=== PATIENT | male | born 1945 | race Caucasian/White ===

== ENCOUNTER → 2020-02-19 13:27 | Outpatient (BNVA) | payer MEDICARE, MEDICAID, SELFPAY | PROVIDERS: Family Provider Nurse Practitioner; PCP Nurse Practitioner; Visit Provider Internal Medicine Cardiovascular Disease | DX: E78.5 Hyperlipidemia, unspecified (principal); D69.6 Thrombocytopenia, unspecified; I10 Essential (primary) hypertension; I25.10 Atherosclerotic heart disease of native coronary artery without angina pectoris | CPT/HCPCS: 80053; 80061; 84443; 85025 ==

== ENCOUNTER 2021-05-09 20:14 | Emergency (ER) | payer MEDICARE, MEDICAID, SELFPAY ==
--- NOTE | 2021-05-09 20:15 | ED_ITS ---
Documented by User: Jovanny Dunn MD 05/11/21 14:19 HPI - Syncope General: Chief Complaint: Nausea/Vomiting/Diarrhea Stated Complaint: near syncope/ n/v Time Seen by Provider: 05/09/21 20:15 History of Present Illness: HPI narrative: Mr. Bingham is a 75-year-old gentleman with significant past medical history of CAD status post stenting, CKD, hypertension, hyperlipidemia who presents emergency department due to generalized unwell symptoms. He reports being at his baseline health and was spending a lot of time going outside today. Sometime after dinner he had subacute onset of lightheadedness and dizziness as well as diaphoresis. This was not associated with position change. He had associated nausea and vomiting. No chest pain associated with it. He had multiple episodes of nonbilious and nonbloody emesis. He thought sitting down would help however symptoms persisted. The intensity is moderate. He denies anyone else around him being sick. No other new specific exacerbating or alleviating factors that he can i dentify. Review of Systems General: Reports: 10 or more systems reviewed and unremarkable except in HPI and below Narrative: CONSTITUTIONAL: see hpi EYES - denies pain, denies loss of vision EARS - denies ear issues. NOSE - denies congestion or rhinorrhea. THROAT - denies sore throat or difficulty swallowing. CARDIOVASCULAR - see hpi RESPIRATORY - denies shortness of breath and cough GASTROINTESTINAL - see hpi GENITOURINARY - denies dysuria or urinary frequency MUSCULOSKELETAL- denies deformity or pain SKIN - denies rashes or new changed skin lesions NEUROLOGIC - see hpi HEMATOLOGIC/LYMPHATIC - denies easy bruising or lymphadenopathy. [facility] ED PFSH: Medical History CKD (chronic kidney disease) Coronary artery disease Hyperlipidemia Hypertension Thrombocytopenia Surgical History History of bilateral knee arthroplasty S/P coronary artery stent placement Family History Other Hyperlipidemia Hypertension Social History Smoking and tobacco status: former smoker Alcohol intake: current Alcohol intake frequency: other Physical Exam Narrative: EXAM NARRATIVE: GENERAL/CONSTITUTIONAL - mildly ill-appearing. No acute distress. Eyes - PERRL, no conjunctival injection ENMT - Atraumatic external nose and ears. Moist mucous membranes NECK - supple. trachea midline CARDIOVASCULAR - regular rate and rhythm. Peripheral pulses 2+ and equal RESPIRATORY -clear to auscultation bilaterally. No retractions or accessory muscle use. ABDOMEN/GI - Nontender/Nondistended. No tenderness to percussion or evidence of peritonitis MSK - Extremities without obvious deformity or tenderness to palpation SKIN - Warm, Dry NEURO - alert and appropriately oriented. strength and sensation intact. Moves all extremities equally. PSYCH - Appropriate mood and affect Course ED course: - Monitor, IV access, and vital signs obtained. - The patient was seen and evaluated by me at bedside - Initial evaluation was notable for no acute distress, non toxic appearance. No focal neuro changes - IV fluids, symptom treatment ordered - Labs notable for no acute abnormality to explain symptoms, mildly elevated creatinine, IV fluids given. - Imaging notable for no acute abnormality to explain symptoms. - Patient care handed off to overnight physician pending 6 hr troponin. - I discussed possible etiologies with the patient. These symptoms are not similar to prior [place] however atypical chest pain cannot be excluded from differential. I offered admission and explained HEART score risk stratification. The patient elected for outpatient followup. Vital Signs: Vital signs: Vital Signs Temperature 98.1 F 05/09/21 20:19 Pulse Rate 67 05/10/21 03:47 Respiratory Rate 18 05/10/21 03:47 Blood Pressure 152/80 05/10/21 03:47 Pulse Oximetry 96 05/10/21 03:47 MDM - Syncope Medical Records: Attestation: I reviewed the patient's medical records. Lab Data: Attestation: I reviewed the patient's lab results. Labs: Lab Results 05/09/21 05/09/21 05/09/21 Range/Units 20:30 20:30 20:30 WBC 6.3 (4.0-10.0) 10^3/ uL RBC 3.95 L (4.1-5.3) 10^6/u L Hgb 12.3 (11.7-16.6) g/dL Hct 38.2 L (42.0-52.0) % MCV 96.7 H (80-94) fl MCH 31.1 (28.0-34.0) pg MCHC 32.2 (30.0-36.0) g/dL RDW 11.8 L (12.1-15.1) % Plt Count 111 L (130-400) 10^3/c mm MPV 12.5 H (7.4-10.4) fL Neut % (Auto) 65.8 % Lymph % (Auto) 22.5 % [place] % (Auto) 9.8 % Eos % (Auto) 1.4 % Baso % (Auto) 0.3 % Neut # (Auto) 4.14 (1.8-7.7) 10^3/u L Lymph # (Auto) 1.4 (0.8-4.8) 10^3/u L [place] # (Auto) 0.6 (0.2-0.9) 10^3/u L Eos # (Auto) 0.1 (0.0-0.8) 10^3/u L Baso # (Auto) 0.0 (0.0-0.1) 10^3/u L Nucleated RBC % (a uto) 0 % Nucleated RBCs # 0.0 /100WBC Sodium 136 (136-145) mmol/L Potassium 4.8 (3.5-5.1) mmol/L Chloride 101 (98-107) mmol/L Carbon Dioxide 26 (22-29) mmol/L Anion Gap 13.8 (5-19) BUN 17 (8-23) mg/dL Creatinine 1.4 H (0.7-1.2) mg/dL GFR Calculation Not Reportable Glucose 122 H (65-115) mg/dL POC Glucose (70-110) mg/dL Calculated Osmolal ity 285 (285-295) mOsm/k g Calcium 9.3 (8.5-10.5) mg/dL Magnesium 2.0 (1.7-2.3) mg/dL Total Bilirubin 0.2 (0.15-1.2) mg/dL AST 15 (0-40) U/L ALT 13 (0-41) U/L Alkaline Phosphata se 53 (40-130) IU/L Troponin T Baselin e 24 H (0-15) ng/L Troponin T 120 Min redding (0-15) ng/L Delta Troponin T (0-10) ABS# Troponin T Hi Sens 6Hr (0-15) ng/L Troponin T Hi Sens 6Hr Delta (0-12) ng/L NT-Pro-B Natriuret Pep 114 (0-450) pg/mL Total Protein 6.7 (6.6-8.7) g/dL Albumin 4.0 (3.5-5.2) g/dL Globulin 2.7 (1.3-4.6) g/dL TSH 1.99 (0.27-4.20) uIU/ mL Urine Color (Yellow) Urine Appearance (CLEAR) Urine pH (5-7) Ur Specific Gravit y (1.005-1.030) Urine Protein (Negative) Urine Glucose (UA) (Normal) Urine Ketones (Negative) Urine Blood (Negative) Urine Nitrate (Negative) Urine Bilirubin (Negative) Urine Urobilinogen (Negative) mg/dL Ur Leukocyte Saira ase (Negative) Urine RBC (0-2) /hpf Urine WBC (0-5) /hpf Ur Squamous Epith Cells (0-5) /hpf Amorphous Sediment Urine Bacteria (NONE) /hpf Hyaline Casts /lpf SARS-CoV-2 Ag (Rap id) (Negative) 05/09/21 05/09/21 05/09/21 Range/Units 20:42 21:20 21:20 WBC (4.0-10.0) 10^3/ uL RBC (4.1-5.3) 10^6/u L Hgb (11.7-16.6) g/dL Hct (42.0-52.0) % MCV (80-94) fl MCH (28.0-34.0) pg MCHC (30.0-36.0) g/dL RDW (12.1-15.1) % Plt Count (130-400) 10^3/c mm MPV (7.4-10.4) fL Neut % (Auto) % Lymph % (Auto) % [place] % (Auto) % Eos % (Auto) % Baso % (Auto) % Neut # (Auto) (1.8-7.7) 10^3/u L Lymph # (Auto) (0.8-4.8) 10^3/u L [place] # (Auto) (0.2-0.9) 10^3/u L Eos # (Auto) (0.0-0.8) 10^3/u L Baso # (Auto) (0.0-0.1) 10^3/u L Nucleated RBC % (a uto) % Nucleated RBCs # /100WBC Sodium (136-145) mmol/L Potassium (3.5-5.1) mmol/L Chloride (98-107) mmol/L Carbon Dioxide (22-29) mmol/L Anion Gap (5-19) BUN (8-23) mg/dL Creatinine (0.7-1.2) mg/dL GFR Calculation Glucose (65-115) mg/dL POC Glucose 131 H (70-110) mg/dL Calculated Osmolal ity (285-295) mOsm/k g Calcium (8.5-10.5) mg/dL Magnesium (1.7-2.3) mg/dL Total Bilirubin (0.15-1.2) mg/dL AST (0-40) U/L ALT (0-41) U/L Alkaline Phosphata se (40-130) IU/L Troponin T Baselin e (0-15) ng/L Troponin T 120 Min redding (0-15) ng/L Delta Troponin T (0-10) ABS# Troponin T Hi Sens 6Hr (0-15) ng/L Troponin T Hi Sens 6Hr Delta (0-12) ng/L NT-Pro-B Natriuret Pep (0-450) pg/mL Total Protein (6.6-8.7) g/dL Albumin (3.5-5.2) g/dL Globulin (1.3-4.6) g/dL TSH (0.27-4.20) uIU/ mL Urine Color Yellow (Yellow) Urine Appearance Sl hazy (CLEAR) Urine pH 7 (5-7) Ur Specific Gravit y 1.010 (1.005-1.030) Urine Protein Neg (Negative) Urine Glucose (UA) Norm (Normal) Urine Ketones Negative (Negative) Urine Blood Neg (Negative) Urine Nitrate Negative (Negative) Urine Bilirubin Neg (Negative) Urine Urobilinogen Norm (Negative) mg/dL Ur Leukocyte Saira ase 1+ H (Negative) Urine RBC 0-4 H (0-2) /hpf Urine WBC 0-4 H (0-5) /hpf Ur Squamous Epith Cells 0-4 H (0-5) /hpf Amorphous Sediment Not Reportable Urine Bacteria Trace (NONE) /hpf Hyaline Casts 0-4 H /lpf SARS-CoV-2 Ag (Rap id) Negative (Negative) 05/09/21 05/10/21 Range/Units 23:08 02:23 WBC (4.0-10.0) 10^3/ uL RBC (4.1-5.3) 10^6/u L Hgb (11.7-16.6) g/dL Hct (42.0-52.0) % MCV (80-94) fl MCH (28.0-34.0) pg MCHC (30.0-36.0) g/dL RDW (12.1-15.1) % Plt Count (130-400) 10^3/c mm MPV (7.4-10.4) fL Neut % (Auto) % Lymph % (Auto) % [place] % (Auto) % Eos % (Auto) % Baso % (Auto) % Neut # (Auto) (1.8-7.7) 10^3/u L Lymph # (Auto) (0.8-4.8) 10^3/u L [place] # (Auto) (0.2-0.9) 10^3/u L Eos # (Auto) (0.0-0.8) 10^3/u L Baso # (Auto) (0.0-0.1) 10^3/u L Nucleated RBC % (a uto) % Nucleated RBCs # /100WBC Sodium (136-145) mmol/L Potassium (3.5-5.1) mmol/L Chloride (98-107) mmol/L Carbon Dioxide (22-29) mmol/L Anion Gap (5-19) BUN (8-23) mg/dL Creatinine (0.7-1.2) mg/dL GFR Calculation Glucose (65-115) mg/dL POC Glucose (70-110) mg/dL Calculated Osmolal ity (285-295) mOsm/k g Calcium (8.5-10.5) mg/dL Magnesium (1.7-2.3) mg/dL Total Bilirubin (0.15-1.2) mg/dL AST (0-40) U/L ALT (0-41) U/L Alkaline Phosphata se (40-130) IU/L Troponin T Baselin e (0-15) ng/L Troponin T 120 Min redding 24.31 H (0-15) ng/L Delta Troponin T 0.31 (0-10) ABS# Troponin T Hi Sens 6Hr 23.98 H (0-15) ng/L Troponin T Hi Sens 6Hr Delta -0.02 L (0-12) ng/L NT-Pro-B Natriuret Pep (0-450) pg/mL Total Protein (6.6-8.7) g/dL Albumin (3.5-5.2) g/dL Globulin (1.3-4.6) g/dL TSH (0.27-4.20) uIU/ mL Urine Color (Yellow) Urine Appearance (CLEAR) Urine pH (5-7) Ur Specific Gravit y (1.005-1.030) Urine Protein (Negative) Urine Glucose (UA) (Normal) Urine Ketones (Negative) Urine Blood (Negative) Urine Nitrate (Negative) Urine Bilirubin (Negative) Urine Urobilinogen (Negative) mg/dL Ur Leukocyte Saira ase (Negative) Urine RBC (0-2) /hpf Urine WBC (0-5) /hpf Ur Squamous Epith Cells (0-5) /hpf Amorphous Sediment Urine Bacteria (NONE) /hpf Hyaline Casts /lpf SARS-CoV-2 Ag (Rap id) (Negative) EKG Data^: EKG 1: Attestation: I personally reviewed and interpreted this EKG as follows: EKG interpretation date: 05/09/21 EKG interpretation time: 20:30 Interpretation: 12 lead shows regular sinus rhythm at rate of 72 NC 220, QRS 102, QTc 434 normal axis Interp: sinus rhythm. prolonged NC Discharge Plan Discharge Patient Disposition: Home Clinical Impression: Nausea and vomiting, Dizziness, Malaise Condition: Stable Prescriptions: No Action aspirin 81 mg tablet,delayed release (DR/EC) 81 mg PO DAILY RF: 0 furosemide 40 mg tablet 40 mg PO DAILY RF: 0 lisinopril 20 mg tablet 20 mg PO DAILY RF: 0 isosorbide mononitrate 30 mg tablet extended release 24 hr 30 mg PO DAILY RF: 0 potassium chloride 10 mEq tablet extended release 10 meq PO DAILY RF: 0 clopidogrel 75 mg tablet 75 mg PO DAILY RF: 0 rosuvastatin 20 mg tablet 20 mg PO DAILY RF: 0 Discharge Orders: Discharge ED (Routine); Ordered 05/10/21 Ordered By: Jesus Alberto Carrera Referrals: Luis Angel Henderson, [employer] [Primary Care Provider] - Discharge Diet: Advance as tolerated and Clear Liquid Discharge Activity: Resume usual activity Patient Instructions: Chest Pain (ED), Acute Nausea and Vomiting (ED), Abdominal Pain (ED), Dizziness (ED), Opioid Safety Activity Restrictions/Additional Instructions: Thank you for visiting the emergency department. You were seen and evaluated for dizziness and nausea and vomiting. The exact cause of your symptoms is unclear. As discussed we recommend further outpatient testing. Additionally, as an incidental finding you were noted to have Enlarged prostate greater than or equal to 5.0 cm. The radiologist recommended PSA correlation however this is not something typically done in the emergency department and this should be discussed with your primary care provider. Please return to the emergency department for worsening of your symptoms or anything else that you are concerned about and feel needs emergency department evaluation. Coding Level of Care Code ED Mechanical Design Engineer for [facility] Documented by User: Jesus Alberto Carrera DO 05/10/21 05:06 HPI - Syncope General: Chief Complaint: Nausea/Vomiting/Diarrhea Stated Complaint: near syncope/ n/v Time Seen by Provider: 05/09/21 20:15 [facility] ED PFSH: Medical History CKD (chronic kidney disease) Coronary artery disease Hyperlipidemia Hypertension Thrombocytopenia Surgical History History of bilateral knee arthroplasty S/P coronary artery stent placement Family History Other Hyperlipidemia Hypertension Social History Smoking and tobacco status: former smoker Alcohol intake: current Alcohol intake frequency: other Course 2 Vital Signs: Vital signs: Vital Signs Temperature 98.1 F 05/09/21 20:19 Pulse Rate 67 05/10/21 03:47 Respiratory Rate 18 05/10/21 03:47 Blood Pressure 152/80 05/10/21 03:47 Pulse Oximetry 96 05/10/21 03:47 MDM - Syncope MDM Narrative: Medical decision making narrative: 75-year-old male checked out to me by Dr. Dean at shift change. This man has a history of coronary disea se. He experienced a near syncopal episode at home. He has been fine on the monitor here. 2-hour troponin did not change significantly. 6-hour troponin did not change significantly either. EKG showed a sinus rhythm with first- degree AV block and rate of 75. There is no ST elevation or depression. [place] is normal. The patient is feeling much better auditory interview. He will be allowed home to follow-up as an outpatient. Lab Data: Labs: Lab Results 05/09/21 05/09/21 05/09/21 Range/Units 20:30 20:30 20:30 WBC 6.3 (4.0-10.0) 10^3/ uL RBC 3.95 L (4.1-5.3) 10^6/u L Hgb 12.3 (11.7-16.6) g/dL Hct 38.2 L (42.0-52.0) % MCV 96.7 H (80-94) fl MCH 31.1 (28.0-34.0) pg MCHC 32.2 (30.0-36.0) g/dL RDW 11.8 L (12.1-15.1) % Plt Count 111 L (130-400) 10^3/c mm MPV 12.5 H (7.4-10.4) fL Neut % (Auto) 65.8 % Lymph % (Auto) 22.5 % [place] % (Auto) 9.8 % Eos % (Auto) 1.4 % Baso % (Auto) 0.3 % Neut # (Auto) 4.14 (1.8-7.7) 10^3/u L Lymph # (Auto) 1.4 (0.8-4.8) 10^3/u L [place] # (Auto) 0.6 (0.2-0.9) 10^3/u L Eos # (Auto) 0.1 (0.0-0.8) 10^3/u L Baso # (Auto) 0.0 (0.0-0.1) 10^3/u L Nucleated RBC % (a uto) 0 % Nucleated RBCs # 0.0 /100WBC Sodium 136 (136-145) mmol/L Potassium 4.8 (3.5-5.1) mmol/L Chloride 101 (98-107) mmol/L Carbon Dioxide 26 (22-29) mmol/L Anion Gap 13.8 (5-19) BUN 17 (8-23) mg/dL Creatinine 1.4 H (0.7-1.2) mg/dL GFR Calculation Not Reportable Glucose 122 H (65-115) mg/dL POC Glucose (70-110) mg/dL Calculated Osmolal ity 285 (285-295) mOsm/k g Calcium 9.3 (8.5-10.5) mg/dL Magnesium 2.0 (1.7-2.3) mg/dL Total Bilirubin 0.2 (0.15-1.2) mg/dL AST 15 (0-40) U/L ALT 13 (0-41) U/L Alkaline Phosphata se 53 (40-130) IU/L Troponin T Baselin e 24 H (0-15) ng/L Troponin T 120 Min redding (0-15) ng/L Delta Troponin T (0-10) ABS# Troponin T Hi Sens 6Hr (0-15) ng/L Troponin T Hi Sens 6Hr Delta (0-12) ng/L NT-Pro-B Natriuret Pep 114 (0-450) pg/mL Total Protein 6.7 (6.6-8.7) g/dL Albumin 4.0 (3.5-5.2) g/dL Globulin 2.7 (1.3-4.6) g/dL TSH 1.99 (0.27-4.20) uIU/ mL Urine Color (Yellow) Urine Appearance (CLEAR) Urine pH (5-7) Ur Specific Gravit y (1.005-1.030) Urine Protein (Negative) Urine Glucose (UA) (Normal) Urine Ketones (Negative) Urine Blood (Negative) Urine Nitrate (Negative) Urine Bilirubin (Negative) Urine Urobilinogen (Negative) mg/dL Ur Leukocyte Saira ase (Negative) Urine RBC (0-2) /hpf Urine WBC (0-5) /hpf Ur Squamous Epith Cells (0-5) /hpf Amorphous Sediment Urine Bacteria (NONE) /hpf Hyaline Casts /lpf SARS-CoV-2 Ag (Rap id) (Negative) 05/09/21 05/09/21 05/09/21 Range/Units 20:42 21:20 21:20 WBC (4.0-10.0) 10^3/ uL RBC (4.1-5.3) 10^6/u L Hgb (11.7-16.6) g/dL Hct (42.0-52.0) % MCV (80-94) fl MCH (28.0-34.0) pg MCHC (30.0-36.0) g/dL RDW (12.1-15.1) % Plt Count (130-400) 10^3/c mm MPV (7.4-10.4) fL Neut % (Auto) % Lymph % (Auto) % [place] % (Auto) % Eos % (Auto) % Baso % (Auto) % Neut # (Auto) (1.8-7.7) 10^3/u L Lymph # (Auto) (0.8-4.8) 10^3/u L [place] # (Auto) (0.2-0.9) 10^3/u L Eos # (Auto) (0.0-0.8) 10^3/u L Baso # (Auto) (0.0-0.1) 10^3/u L Nucleated RBC % (a uto) % Nucleated RBCs # /100WBC Sodium (136-145) mmol/L Potassium (3.5-5.1) mmol/L Chloride (98-107) mmol/L Carbon Dioxide (22-29) mmol/L Anion Gap (5-19) BUN (8-23) mg/dL Creatinine (0.7-1.2) mg/dL GFR Calculation Glucose (65-115) mg/dL POC Glucose 131 H (70-110) mg/dL Calculated Osmolal ity (285-295) mOsm/k g Calcium (8.5-10.5) mg/dL Magnesium (1.7-2.3) mg/dL Total Bilirubin (0.15-1.2) mg/dL AST (0-40) U/L ALT (0-41) U/L Alkaline Phosphata se (40-130) IU/L Troponin T Baselin e (0-15) ng/L Troponin T 120 Min redding (0-15) ng/L Delta Troponin T (0-10) ABS# Troponin T Hi Sens 6Hr (0-15) ng/L Troponin T Hi Sens 6Hr Delta (0-12) ng/L NT-Pro-B Natriuret Pep (0-450) pg/mL Total Protein (6.6-8.7) g/dL Albumin (3.5-5.2) g/dL Globulin (1.3-4.6) g/dL TSH (0.27-4.20) uIU/ mL Urine Color Yellow (Yellow) Urine Appearance Sl hazy (CLEAR) Urine pH 7 (5-7) Ur Specific Gravit y 1.010 (1.005-1.030) Urine Protein Neg (Negative) Urine Glucose (UA) Norm (Normal) Urine Ketones Negative (Negative) Urine Blood Neg (Negative) Urine Nitrate Negative (Negative) Urine Bilirubin Neg (Negative) Urine Urobilinogen Norm (Negative) mg/dL Ur Leukocyte Saira ase 1+ H (Negative) Urine RBC 0-4 H (0-2) /hpf Urine WBC 0-4 H (0-5) /hpf Ur Squamous Epith Cells 0-4 H (0-5) /hpf Amorphous Sediment Not Reportable Urine Bacteria Trace (NONE) /hpf Hyaline Casts 0-4 H /lpf SARS-CoV-2 Ag (Rap id) Negative (Negative) 05/09/21 05/10/21 Range/Units 23:08 02:23 WBC (4.0-10.0) 10^3/ uL RBC (4.1-5.3) 10^6/u L Hgb (11.7-16.6) g/dL Hct (42.0-52.0) % MCV (80-94) fl MCH (28.0-34.0) pg MCHC (30.0-36.0) g/dL RDW (12.1-15.1) % Plt Count (130-400) 10^3/c mm MPV (7.4-10.4) fL Neut % (Auto) % Lymph % (Auto) % [place] % (Auto) % Eos % (Auto) % Baso % (Auto) % Neut # (Auto) (1.8-7.7) 10^3/u L Lymph # (Auto) (0.8-4.8) 10^3/u L [place] # (Auto) (0.2-0.9) 10^3/u L Eos # (Auto) (0.0-0.8) 10^3/u L Baso # (Auto) (0.0-0.1) 10^3/u L Nucleated RBC % (a uto) % Nucleated RBCs # /100WBC Sodium (136-145) mmol/L Potassium (3.5-5.1) mmol/L Chloride (98-107) mmol/L Carbon Dioxide (22-29) mmol/L Anion Gap (5-19) BUN (8-23) mg/dL Creatinine (0.7-1.2) mg/dL GFR Calculation Glucose (65-115) mg/dL POC Glucose (70-110) mg/dL Calculated Osmolal ity (285-295) mOsm/k g Calcium (8.5-10.5) mg/dL Magnesium (1.7-2.3) mg/dL Total Bilirubin (0.15-1.2) mg/dL AST (0-40) U/L ALT (0-41) U/L Alkaline Phosphata se (40-130) IU/L Troponin T Baselin e (0-15) ng/L Troponin T 120 Min redding 24.31 H (0-15) ng/L Delta Troponin T 0.31 (0-10) ABS# Troponin T Hi Sens 6Hr 23.98 H (0-15) ng/L Troponin T Hi Sens 6Hr Delta -0.02 L (0-12) ng/L NT-Pro-B Natriuret Pep (0-450) pg/mL Total Protein (6.6-8.7) g/dL Albumin (3.5-5.2) g/dL Globulin (1.3-4.6) g/dL TSH (0.27-4.20) uIU/ mL Urine Color (Yellow) Urine Appearance (CLEAR) Urine pH (5-7) Ur Specific Gravit y (1.005-1.030) Urine Protein (Negative) Urine Glucose (UA) (Normal) Urine Ketones (Negative) Urine Blood (Negative) Urine Nitrate (Negative) Urine Bilirubin (Negative) Urine Urobilinogen (Negative) mg/dL Ur Leukocyte Saira ase (Negative) Urine RBC (0-2) /hpf Urine WBC (0-5) /hpf Ur Squamous Epith Cells (0-5) /hpf Amorphous Sediment Urine Bacteria (NONE) /hpf Hyaline Casts /lpf SARS-CoV-2 Ag (Rap id) (Negative) Discharge Plan Discharge Patient Disposition: Home Clinical Impression: Nausea and vomiting, Dizziness, Malaise Condition: Stable Prescriptions: No Action aspirin 81 mg tablet,delayed release (DR/EC) 81 mg PO DAILY RF: 0 furosemide 40 mg tablet 40 mg PO DAILY RF: 0 lisinopril 20 mg tablet 20 mg PO DAILY RF: 0 isosorbide mononitrate 30 mg tablet extended release 24 hr 30 mg PO DAILY RF: 0 potassium chloride 10 mEq tablet extended release 10 meq PO DAILY RF: 0 clopidogrel 75 mg tablet 75 mg PO DAILY RF: 0 rosuvastatin 20 mg tablet 20 mg PO DAILY RF: 0 Discharge Orders: Discharge ED (Routine); Ordered 05/10/21 Ordered By: Jesus Alberto Carrera Referrals: Luis Angel Henderson, MONICA [Primary Care Provider] - Discharge Diet: Advance as tolerated and Clear Liquid Discharge Activity: Resume usual activity Patient Instructions: Chest Pain (ED), Acute Nausea and Vomiting (ED), Abdominal Pain (ED), Dizziness (ED), Opioid Safety Activity Restrictions/Additional Instructions: Thank you for visiting the emergency department. You were seen and evaluated for dizziness and nausea and vomiting. The exact cause of your symptoms is unclear. As discussed we recommend further outpatient testing. Additionally, as an incidental finding you were noted to have Enlarged prostate greater than or equal to 5.0 cm. The radiologist recommended PSA correlation however this is not something typically done in the emergency department and this should be discussed with your primary care provider. Please return to the emergency department for worsening of your symptoms or anything else that you are concerned about and feel needs emergency department evaluation. Coding Level of Care Code ED Mechanical Design Engineer for Caleb Myles
[2021-05-09 20:19] VITALS: BP 184/101; PULSE 73; RESP 16; TEMP 36.7; O2SAT 100; BMI 34.4
[2021-05-09 20:24] VITALS: BP 181/107; PULSE 74; RESP 27; O2SAT 97
--- NOTE | 2021-05-09 20:35 | XRR_ITS ---
PROCEDURE INFORMATION: Exam: XR Chest Exam date and time: 05/09/2021 8:35 PM Age: 75 years old Clinical indication: Pain; Left-sided; Additional info: Chest pain TECHNIQUE: Imaging protocol: XR of the chest. Views: 1 view. COMPARISON: CR Chest 1 [place] [id number] 11/17/2018 12:38 PM FINDINGS: Lungs: Unremarkable. No consolidation. Pleural spaces: Unremarkable. No pleural effusion. No pneumothorax. Heart/Mediastinum: Unremarkable. No cardiomegaly. Bones/joints: Unremarkable. Other findings: Patient rotation to the right. XR/XR chest 1V portable [id number] IMPRESSION: No acute findings.
--- NOTE | 2021-05-09 20:35 | CTR_ITS ---
PROCEDURE INFORMATION: Exam: CT Head Without Contrast Exam date and time: 05/09/2021 8:35 PM Age: 75 years old Clinical indication: Dizziness; Additional info: Dizzy TECHNIQUE: Imaging protocol: Computed tomography of the head without contrast. Radiation optimization: All CT scans at this facility use at least one of these dose optimization techniques: automated exposure control; mA and/or kV adjustment per patient size (includes targeted exams where dose is matched to clinical indication); or iterative reconstruction. COMPARISON: No relevant prior studies available. RADIATION DOSE METRICS: Total DLP (mGy-cm): 841.58 FINDINGS: Brain: Mild cerebral atrophy and ischemic leukoencephalopathy. Cerebral ventricles: No ventriculomegaly. Paranasal sinuses: Visualized sinuses are unremarkable. No fluid levels. Mastoid air cells: Visualized mastoid air cells are well aerated. Vasculature: Severe calcified intracranial atherosclerotic vessel disease. Bones/joints: Unremarkable. No acute fracture. Soft tissues: Unremarkable. CT/CT head wo con* [id number] IMPRESSION: No acute intracranial findings. Radiation Dose CTDIVOL = (mGy): DLP = 841.58 (mGy-cm)
--- NOTE | 2021-05-09 20:36 | ECG_ITS ---
[facility] Test Date: 2021-05-10 Pat Name: Elías Bingham Department: Room: Gender: Male [employer]: : [id number] Requested By: Jovanny Dunn Order Number: [id number] Reading MD: SOHAIL RAMIREZ Measurements Intervals [place] Rate: 74 P: 69 ID: [id number] QRS: 44 QRSD: 98 T: 95 QT: 393 QTc: 438 Interpretive Statements SINUS RHYTHM WITH FIRST DEGREE AV BLOCK WITH OCCASIONAL SUPRAVENTRICULAR PREMATURE COMPLEXES NONSPECIFIC T-WAVE ABNORMALITY Compared to ECG 11/18/2018 13:13:04 First degree AV block now present T-wave abnormality now present Myocardial infarct finding no longer present Electronically Signed On 05-10-2021 20:15:37 CDT by SOHAIL RAMIREZ [id number]
[2021-05-09] MEDS: sodium chloride 0.9% 1,000 ML 999 ML IV (20:45)
[2021-05-09] MEDS: ondansetron 2 mg/ML SDV 2 mL 4 MG IVP (20:45)
[2021-05-09 20:46] LABS: Basophils % 0.3 %; Eosinophils # 0.1 10^3/uL (0.0-0.8); Eosinophils % 1.4 %; Hematocrit 38.2 % (42.0-52.0); Hemoglobin 12.3 g/dL (11.7-16.6); Lymphocytes # 1.4 10^3/uL (0.8-4.8); Lymphocytes % 22.5 %; Mean Corpuscular HGB Conc 32.2 g/dL (30.0-36.0); Mean Corpuscular Hemoglobin 31.1 pg (28.0-34.0); Mean Corpuscular Volume 96.7 fl (80-94); Mean Platelet Volume 12.5 fL (7.4-10.4); Monocytes # 0.6 10^3/uL (0.2-0.9); Monocytes % 9.8 %; Neutrophils # 4.14 10^3/uL (1.8-7.7); Neutrophils % 65.8 %; Nucleated Red Blood Cells % 0 %; Platelet Count 111 10^3/cmm (130-400); Red Blood Count 3.95 10^6/uL (4.1-5.3); Red Cell Distribution Width 11.8 % (12.1-15.1); White Blood Count 6.3 10^3/uL (4.0-10.0)
[2021-05-09 20:54] VITALS: BP 169/91; PULSE 74; RESP 17; O2SAT 99
[2021-05-09 21:10] LABS: Troponin(5th) Baseline 24 ng/L (0-15)
--- NOTE | 2021-05-09 21:14 | CTR_ITS ---
PROCEDURE INFORMATION: Exam: CTA Chest With Contrast Exam date and time: 05/09/2021 9:14 PM Age: 75 years old Clinical indication: Nausea and vomiting; Shortness of breath; Prior surgery; Surgery type: Stents; Additional info: Hypoxemia, dizzy TECHNIQUE: Imaging protocol: Computed tomographic angiography of the chest with contrast. 3D rendering (Not supervised by radiologist): MIP and/or 3D reconstructed images were created by the technologist. Radiation optimization: All CT scans at this facility use at least one of these dose optimization techniques: automated exposure control; mA and/or kV adjustment per patient size (includes targeted exams where dose is matched to clinical indication); or iterative reconstruction. Contrast material: VISI 320; Contrast volume: 95 ml; Contrast route: INTRAVENOUS (IV); COMPARISON: CR (CHEST, ) 05/09/2021 8:35 PM RADIATION DOSE METRICS: Total DLP (mGy-cm): 1772.28 FINDINGS: Pulmonary arteries: No pulmonary embolus or aortic dissection. Aorta: Unremarkable. No aortic aneurysm. No aortic dissection. Great vessels off aortic arch: Calcification of the thoracic aorta and/or great vessels consistent with atherosclerotic vessel disease. Lungs: Bilateral discoid atelectasis and/or scarring. Pleural spaces: Unremarkable. No pneumothorax. No pleural effusion. Heart: Severe calcified coronary artery disease. Lymph nodes: Calcified right hilar nodes and/or mediastinal nodes and/or lung granulomas consistent with old granulomatous disease. Liver: Calcified hepatic granulomas. Spleen: Calcified splenic granulomas. Bones/joints: Unremarkable. No acute fracture. Soft tissues: Unremarkable. IMPRESSION: 1. Severe calcified coronary artery disease. 2. No pulmonary embolus or aortic dissection. PROCEDURE INFORMATION: Exam: CT Abdomen And Pelvis With Contrast Exam date and time: 05/09/2021 9:14 PM Age: 75 years old Clinical indication: Nausea and vomiting; Shortness of breath; Prior surgery; Surgery type: Stents; Additional info: Hypoxemia, dizzy TECHNIQUE: Imaging protocol: Computed tomography of the abdomen and pelvis with contrast. Radiation optimization: All CT scans at this facility use at least one of these dose optimization techniques: automated exposure control; mA and/or kV adjustment per patient size (includes targeted exams where dose is matched to clinical indication); or iterative reconstruction. Contrast material: VISI 320; Contrast volume: 95 ml; Contrast route: INTRAVENOUS (IV); COMPARISON: CR (CHEST, ) 05/09/2021 8:35 PM RADIATION DOSE METRICS: Total DLP (mGy-cm): 1772.28 FINDINGS: Liver: Normal. No mass. Gallbladder and bile ducts: Normal. No calcified stones. No ductal dilation. Pancreas: Normal. No ductal dilation. Spleen: Calcified splenic granulomas. Adrenal glands: Normal. No mass. Kidneys and ureters: Multiple left renal hypodensities with the largest measuring < 1.0 cm, too small to further characterize. Right renal simple cyst measuring >1.0 cm . Stomach and bowel: Unremarkable. No obstruction. No mucosal thickening. Appendix: No evidence of appendicitis. Intraperitoneal space: Unremarkable. No free air. No significant fluid collection. Vasculature: Calcification of the abdominal aorta and/or iliac arteries consistent with atherosclerotic vessel disease. Lymph nodes: Unremarkable. No enlarged lymph nodes. Urinary bladder: Unremarkable as visualized. Reproductive: Nonspecific prostate calcifications. Enlarged prostate greater than or equal to 5.0 cm; correlation with PSA levels is recommended. Bones/joints: Moderate to severe multilevel spine degenerative changes including degenerative disc disease, spondylosis and facet degenerative changes. Dextroscoliosis. Soft tissues: Unremarkable. CT/CT angio chest w abd pel w con IMPRESSION: Enlarged prostate greater than or equal to 5.0 cm; correlation with PSA levels is recommended. COMMENTS: Consistent with the [employer]'s Incidental Findings Committee white paper (J Am Jaime Radiol 2018): Any incidental renal lesion less than 1 cm or classified as too small to characterize, or any incidental cystic renal lesion characterized as simple-appearing, is likely benign. No follow-up imaging is recommended for these lesions per consensus recommendations based on imaging criteria. Radiation Dose CTDIVOL = (mGy): DLP = 1772.28~1772.28 (mGy-cm)
[2021-05-09 21:28] LABS: Alanine Aminotransferase 13 U/L (0-41); Alkaline Phosphatase 53 IU/L (40-130); Anion Gap 13.8 (5-19); Aspartate Amino Transferase 15 U/L (0-40); Blood Urea Nitrogen 17 mg/dL (8-23); Calcium 9.3 mg/dL (8.5-10.5); Carbon Dioxide 26 mmol/L (22-29); Chloride 101 mmol/L (98-107); Globulin 2.7 g/dL (1.3-4.6); Glucose 122 mg/dL (65-115); NT Pro B Type Natriuretic Pept 114 pg/mL (0-450); Osmolality Calculated 285 mOsm/kg (285-295); Potassium 4.8 mmol/L (3.5-5.1); Sodium 136 mmol/L (136-145); Thyroid Stimulating Hormone 1.99 uIU/mL (0.27-4.20); Total Bilirubin 0.2 mg/dL (0.15-1.2); Total Protein 6.7 g/dL (6.6-8.7)
[2021-05-09 21:57] LABS: Add Urine Microscopic? YES; Bilirubin Urine Neg (Negative); Blood Urine Neg (Negative); Glucose Urine UA Norm (Normal); Ketones Urine Negative (Negative); Leukocyte Esterase Urine 1+ (Negative); Nitrate Urine Negative (Negative); Protein Urine Neg (Negative); SARS Covid-2 Antigen Negative (Negative); Urine Appearance SL Hazy (CLEAR); Urine Color Yellow (Yellow); Urobilinogen Urine Norm (Negative); pH Urine 7 (5-7)
[2021-05-09 21:59] LABS: Bacteria Urine TRACE /hpf; Hyaline Casts Urine 0-4 /lpf; RBC Urine 0-4 /hpf (0-2); Squamous Epithelial Cell Urine 0-4 /hpf (0-5); WBC Urine 0-4 /hpf (0-5)
[2021-05-09 22:00] LABS: Add Urine Culture? No
[2021-05-09 22:24] VITALS: BP 182/88; PULSE 70; RESP 21; O2SAT 98
[2021-05-09] MEDS: iodixanol 320 mg/mL 100mL Btl IV (22:24)
--- NOTE | 2021-05-09 22:36 | ECG_ITS ---
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1945 Requested By: Jovanny Dunn Order Number: [id number] Otilia MD: SOHAIL RAMIREZ Measurements Intervals [place] Rate: 72 P: 75 [place]: 220 QRS: 56 QRSD: 102 T: 93 QT: 396 QTc: 434 Interpretive Statements SINUS RHYTHM WITH MARKED SINUS ARRHYTHMIA WITH FIRST DEGREE AV BLOCK Compared to ECG 11/18/2018 13:13:04 First degree AV block now present Myocardial infarct finding no longer present Electronically Signed On 05-10-2021 20:18:29 CDT by SOHAIL RAMIREZ [id number]
[2021-05-09 23:54] VITALS: BP 174/87; PULSE 73; RESP 21; O2SAT 98
[2021-05-10 00:07] LABS: Troponin 5 2HR 24.31 ng/L (0-15); Troponin 5 2HR Delta 0.31 ABS# (0-10)
[2021-05-10 01:54] VITALS: BP 170/80; PULSE 73; RESP 17; O2SAT 97
--- NOTE | 2021-05-10 02:36 | ECG_ITS ---
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1945 Requested By: Jovanny Dunn Order Number: [id number] Otilia MD: SOHAIL RAMIREZ Measurements Intervals [place] Rate: 73 P: 68 [place]: 215 QRS: 35 QRSD: 94 T: 93 QT: 381 QTc: 422 Interpretive Statements SINUS RHYTHM WITH MARKED SINUS ARRHYTHMIA WITH FIRST DEGREE AV BLOCK NONSPECIFIC T-WAVE ABNORMALITY Compared to ECG 11/18/2018 13:13:04 First degree AV block now present T-wave abnormality now present Myocardial infarct finding no longer present Electronically Signed On 05-10-2021 20:18:01 CDT by SOHAIL RAMIREZ [id number]
[2021-05-10 02:50] LABS: Troponin 5 6HR 23.98 ng/L (0-15)
[2021-05-10 02:51] LABS: Troponin 5 6HR Delta -0.02 ng/L (0-12)
[2021-05-10 03:24] VITALS: BP 184/78; PULSE 70; RESP 17; O2SAT 97
[2021-05-10 03:47] VITALS: BP 152/80; PULSE 67; RESP 18; O2SAT 96
[2021-05-11 07:57] LABS: Glucose Point of Care 131 mg/dL (70-110)
--- NOTE | 2021-05-15 08:42 | DCPLANNER ---
manager user interface had message to schedule an outpatient stress test, and an echo cardiogram and a follow up appointment with heart care. manager user interface faxed signed order to centralized scheduling for a stress test and an echo cardiogram, who will call patient with appointment information. manager user interface will call heart care to schedule an appointment.
--- NOTE | 2021-05-15 09:15 | DCPLANNER ---
alliance manager called heart care, spoke with Jana, gave clinic patients information. A follow up appointment was scheduled for Thursday, June 17, 2021 at 10:45 with Areli Gusman. alliance manager called patient with appointment information.
--- NOTE | 2021-05-16 16:00 | DCPLANNER ---
Addendum entered by Natalya Carver 09/26/21 14:10: Patient had a followup appointment scheduled with Heart [facility] - patient did attend appointment. Original Note: Patient has an outpatient stress test and an echo cardiogram scheduled for Wednesday, June 11, 2021 at 10:45 and 12:45.
== END 2021-05-10 03:48 | disposition home or self-care (01) ==
PROVIDERS: Emergency Medicine; Emergency Provider Emergency Medicine; PCP Nurse Practitioner
DX: R42 Dizziness and giddiness (principal); R53.81 Other malaise; R11.2 Nausea with vomiting, unspecified; Z79.82 Long term (current) use of aspirin; Z79.02 Long term (current) use of antithrombotics/antiplatelets; I25.10 Atherosclerotic heart disease of native coronary artery without angina pectoris; E78.5 Hyperlipidemia, unspecified; I10 Essential (primary) hypertension; Z87.891 Personal history of nicotine dependence; Z20.822 Contact with and (suspected) exposure to COVID-19
CPT/HCPCS: 36416; 70450; 71045; 71275; 74177; 80053; 81001; 82962; 83735; 83880; 84443; 84484; 85025; 87426; 93005; 96361; 96374; 99284; J2405; J7030; Q9967

== ENCOUNTER 2021-05-25 13:49 | Emergency (ER) | payer MEDICARE, MEDICAID, SELFPAY ==
[2021-05-25] VITALS (14 sets, daily range): BP systolic 106–174; BP diastolic 60–89; PULSE 69–98; RESP 19–28; O2SAT 91–100; BMI 34.4
--- NOTE | 2021-05-25 13:52 | XRR_ITS ---
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 Views: 1 view. COMPARISON: CR (CHEST, ) 05/09/2021 8:35 PM FINDINGS: Lungs: Unremarkable. No consolidation. Pleural spaces: Unremarkable. No pleural effusion. No pneumothorax. Heart/Mediastinum: Unremarkable. No cardiomegaly. Bones/joints: Unremarkable. XR/XR chest 1V portable [id number] IMPRESSION: No acute findings.
--- NOTE | 2021-05-25 13:52 | CTR_ITS ---
PROCEDURE INFORMATION: Exam: CT Head Without Contrast Exam date and time: 05/25/2021 1:52 PM Age: 75 years old Clinical indication: Altered mental status/memory loss; Confusion or disorientation TECHNIQUE: Imaging protocol: Computed tomography of the head without contrast. Radiation optimization: All CT scans at this facility use at least one of these dose optimization techniques: automated exposure control; mA and/or kV adjustment per patient size (includes targeted exams where dose is matched to clinical indication); or iterative reconstruction. COMPARISON: CT head wo con* [id number] 05/09/2021 10:15 PM RADIATION DOSE METRICS: Total DLP (mGy-cm): 911.91 FINDINGS: Brain: Mild cerebral atrophy and ischemic leukoencephalopathy. Cerebral ventricles: No ventriculomegaly. Paranasal sinuses: Visualized sinuses are unremarkable. No fluid levels. Mastoid air cells: Visualized mastoid air cells are well aerated. Vasculature: Severe calcified intracranial atherosclerotic vessel disease. Bones/joints: Unremarkable. No acute fracture. Soft tissues: Unremarkable. CT/CT head wo con* [id number] IMPRESSION: No acute intracranial findings. Radiation Dose CTDIVOL = (mGy): DLP = 911.91 (mGy-cm)
--- NOTE | 2021-05-25 13:52 | ECG_ITS ---
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 Measurements Intervals [place] Rate: 70 P: [place]: QRS: 61 QRSD: 103 T: 81 QT: 421 QTc: 457 Interpretive Statements Multifocal atrial rhythm ABNORMAL RHYTHM ECG Compared to ECG 05/10/2021 02:29:16 Sinus rhythm no longer present Sinus arrhythmia no longer present First degree AV block no longer present T-wave abnormality no longer present Electronically Signed On 05-25-2021 18:07:14 CDT by Daniel Magallanes M.D. [id number]
--- NOTE | 2021-05-25 13:57 | ED_ITS ---
HPI - General Adult General: Chief complaint: Syncope Stated complaint: SYNCOPE Time Seen by Provider: 05/25/21 13:51 History of Present Illness: HPI narrative: This patient is a 75-year-old male who has a long history of dizziness presents to the emergency department for syncopal episode related to dizziness. 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 Patient states he shut down the tractor and got off and then fell and passed out. States his only just a few seconds. Patient has no other complaints. Patient was recently admitted in the hospital for the same. Will do medical evaluation treat as needed Onset (ago): minute(s) Associated symptoms: Reports syncope; Deny chest pain, dyspnea, headache(s), nausea, rash, palpitations or vomiting Review of Systems General: Reports: 10 or more systems reviewed and unremarkable except in HPI and below Const: Denies: fever(s), chills, body aches or fatigue Eyes: Denies: change in vision or blurry vision ENMT: Denies: throat pain, hoarseness or mouth pain Card: Reports: syncope; Denies: chest pain, palpitations, irregular heart rhythm, edema, swelling of feet/ankles or lightheadedness Resp: Denies: dyspnea, productive cough, non-productive cough, wheezing or pain on inspiration GI: Denies: abdominal pain, nausea or vomiting : Denies: flank pain, dysuria, urinary frequency, urinary urgency or urinary hesitancy Musc: Denies: neck pain, back pain, extremity pain, extremity swelling, joint pain, joint swelling, joint redness, joint warmth or limited range of motion Skin/Breast: Denies: rash, pruritus, erythema or skin tenderness Neuro: Reports: dizziness; Denies: headache(s), numbness in extremities or weakness in extremities Psych: Denies: anxiety or depression PFS ED PFSH: Medical History CKD (chronic kidney disease) Coronary artery disease Hyperlipidemia Hypertension Thrombocytopenia Surgical History History of bilateral knee arthroplasty S/P coronary artery stent placement Family History Other Hyperlipidemia Hypertension Social History Smoking and tobacco status: former smoker Alcohol intake: current Alcohol intake frequency: other Physical Exam Const: COMMON NORMALS: no acute distress, average body habitus, patient oriented x3, no limitations, healthy appearing, alert and well nourished HENMT: COMMON NORMALS: normocephalic, atraumatic, hearing grossly normal bilaterally, external ears normal, EAC's normal, TM's normal bilaterally, Normal external nose present, Normal nasal mucous membranes and turbinates present, moist oral mucous membranes, oropharynx normal, dentition normal and gingiva normal HEAD & SCALP: normocephalic and atraumatic NOSE: Normal external nose present and Normal nasal mucous membranes and turbinates present EXTERNAL EAR: Yes external ears normal EXTERNAL AUDITORY CANAL: EAC's normal TYMPANIC MEMBRANE: TM's normal bilaterally Neck/C-Spine: COMMON NORMALS: full ROM, no lymphadenopathy, supple, no meningeal signs, no JVD, Thyroid normal and No carotid bruits THYROID: Thyroid normal Chest: COMMONS NORMALS: normal inspection of the chest, normal palpation of entire chest wall, normal inspection of the breasts and normal palpation of the breasts Breast/axilla inspection: Yes normal inspection of the breasts BREAST/AXILLA PALPATION: Yes normal palpation of the breasts Resp: COMMON NORMALS: normal respiratory effort, No retractions, No use of accessory muscles, clear to auscultation bilaterally and percussion normal AUSCULTATION: clear to auscultation bilaterally PERCUSSION: percussion normal Cardio: COMMON NORMALS: no JVD, regular rate, regular rhythm, S1 normal heart sound present, S2 normal heart sound present, No gallops present (Cardio), No clicks present (Cardio), No murmurs present (Cardio), No rub (Cardio) and Peripheral pulses 2+ throughout RATE: regular rate RHYTHM: regular rhythm HEART SOUNDS: S1 normal heart sound present and S2 normal heart sound present PERIPHERAL PULSES: Peripheral pulses 2+ throughout GI: COMMON NORMALS: Normal to inspection, nondistended, normoactive bowel sounds present, Soft to palpation, non-tender, No hepatosplenomegaly present, no masses and no bruits PALPATION: Yes Soft to palpation and Yes No hepatosplenomegaly present : COMMON NORMALS: Yes no CVA tenderness BLADDER/KIDNEY EXAM: Yes no CVA tenderness Back/Pelvis: COMMON NORMALS: no CVA tenderness, thoracic and lumbar spine normal to inspection, no thoracic nor lumbar tenderness, thoraco-lumbar ROM normal and straight leg raise negative bilaterally Extremity: COMMON NORMALS: normal to inspection, full ROM, capillary refill normal, no joint enlargement, no clubbing, cyanosis or edema, no calf tenderness and no pedal edema Neuro: COMMON NORMALS: patient oriented x3 SENSORIUM/ORIENTATION: Yes alert MENINGEAL SIGNS: Yes no meningeal signs Course Reevaluation(s): Reevaluation #1: Negative evaluation in the emergency department. Patient does have a history of chronic syncope. I do not see where the patient has an echocardiogram but was just recently discharged the hospital. I will have case management set the patient for an outpatient Holter monitor. Patient should avoid operating heavy machinery. Take medications as prescribed. Follow-up with PCP in 2 to 3 days. Time: 16:50 Vital Signs: Vital signs: Vital Signs Pulse Rate 69 05/25/21 15:00 Respiratory Rate 19 H 05/25/21 15:00 Blood Pressure 154/89 05/25/21 16:30 Pulse Oximetry 97 05/25/21 15:45 MDM - General Adult MDM Narrative: Medical decision making narrative: Negative evaluation in the emergency department. Patient does have a history of chronic syncope. I do not see where the patient has an echocardiogram but was just recently discharged the hospital. I will have case management set the patient for an outpatient Holter monitor. Patient should avoid operating heavy machinery. Take medications as prescribed. Follow-up with PCP in 2 to 3 days. Lab Data: Labs: Lab Results 05/25/21 05/25/21 05/25/21 Range/Units 14:15 14:15 14:15 WBC 6.9 (4.0-10.0) 10^3/ uL RBC 3.88 L (4.1-5.3) 10^6/u L Hgb 12.1 (11.7-16.6) g/dL Hct 38.1 L (42.0-52.0) % MCV 98.2 H (80-94) fl MCH 31.2 (28.0-34.0) pg MCHC 31.8 (30.0-36.0) g/dL RDW 11.9 L (12.1-15.1) % Plt Count 113 L (130-400) 10^3/c mm MPV 12.3 H (7.4-10.4) fL Neut % (Auto) 73.5 % Lymph % (Auto) 16.8 % [place] % (Auto) 8.3 % Eos % (Auto) 1.0 % Baso % (Auto) 0.1 % Neut # (Auto) 5.03 (1.8-7.7) 10^3/u L Lymph # (Auto) 1.2 (0.8-4.8) 10^3/u L [place] # (Auto) 0.6 (0.2-0.9) 10^3/u L Eos # (Auto) 0.1 (0.0-0.8) 10^3/u L Baso # (Auto) 0.0 (0.0-0.1) 10^3/u L Nucleated RBC % (a uto) 0 % Nucleated RBCs # 0.0 /100WBC PT 14.50 (12.1-14.9) SECO NDS INR 1.10 (0.8-1.2) APTT 26.0 (23.9-36.7) SECO NDS Sodium 136 (136-145) mmol/L Potassium 4.9 (3.5-5.1) mmol/L Chloride 102 (98-107) mmol/L Carbon Dioxide 22 (22-29) mmol/L Anion Gap 16.9 (5-19) BUN 15 (8-23) mg/dL Creatinine 1.4 H (0.7-1.2) mg/dL GFR Calculation Not Reportable Glucose 121 H (65-115) mg/dL Calculated Osmolal ity 284 L (285-295) mOsm/k g Calcium 9.6 (8.5-10.5) mg/dL Total Bilirubin 0.4 (0.15-1.2) mg/dL AST 16 (0-40) U/L ALT 14 (0-41) U/L Alkaline Phosphata se 55 (40-130) IU/L Troponin T Baselin e (0-15) ng/L Troponin T 120 Min [place] (0-15) ng/L Delta Troponin T (0-10) ABS# NT-Pro-B Natriuret Pep 199 (0-450) pg/mL Total Protein 6.5 L (6.6-8.7) g/dL Albumin 3.9 (3.5-5.2) g/dL Globulin 2.6 (1.3-4.6) g/dL Urine Color (Yellow) Urine Appearance (CLEAR) Urine pH (5-7) Ur Specific Gravit y (1.005-1.030) Urine Protein (Negative) Urine Glucose (UA) (Normal) Urine Ketones (Negative) Urine Blood (Negative) Urine Nitrate (Negative) Urine Bilirubin (Negative) Urine Urobilinogen (Negative) mg/dL Ur Leukocyte Saira ase (Negative) 05/25/21 05/25/21 05/25/21 Range/Units 14:15 15:05 16:07 WBC (4.0-10.0) 10^3/ uL RBC (4.1-5.3) 10^6/u L Hgb (11.7-16.6) g/dL Hct (42.0-52.0) % MCV (80-94) fl MCH (28.0-34.0) pg MCHC (30.0-36.0) g/dL RDW (12.1-15.1) % Plt Count (130-400) 10^3/c mm MPV (7.4-10.4) fL Neut % (Auto) % Lymph % (Auto) % [place] % (Auto) % Eos % (Auto) % Baso % (Auto) % Neut # (Auto) (1.8-7.7) 10^3/u L Lymph # (Auto) (0.8-4.8) 10^3/u L [place] # (Auto) (0.2-0.9) 10^3/u L Eos # (Auto) (0.0-0.8) 10^3/u L Baso # (Auto) (0.0-0.1) 10^3/u L Nucleated RBC % (a uto) % Nucleated RBCs # /100WBC PT (12.1-14.9) SECO NDS INR (0.8-1.2) APTT (23.9-36.7) SECO NDS Sodium (136-145) mmol/L Potassium (3.5-5.1) mmol/L Chloride (98-107) mmol/L Carbon Dioxide (22-29) mmol/L Anion Gap (5-19) BUN (8-23) mg/dL Creatinine (0.7-1.2) mg/dL GFR Calculation Glucose (65-115) mg/dL Calculated Osmolal ity (285-295) mOsm/k g Calcium (8.5-10.5) mg/dL Total Bilirubin (0.15-1.2) mg/dL AST (0-40) U/L ALT (0-41) U/L Alkaline Phosphata se (40-130) IU/L Troponin T Baselin e 24 H (0-15) ng/L Troponin T 120 Min [place] 25.42 H (0-15) ng/L Delta Troponin T 1.42 (0-10) ABS# NT-Pro-B Natriuret Pep (0-450) pg/mL Total Protein (6.6-8.7) g/dL Albumin (3.5-5.2) g/dL Globulin (1.3-4.6) g/dL Urine Color Yellow (Yellow) Urine Appearance Clear (CLEAR) Urine pH 5 (5-7) Ur Specific Gravit y 1.010 (1.005-1.030) Urine Protein Neg (Negative) Urine Glucose (UA) Norm (Normal) Urine Ketones Negative (Negative) Urine Blood Neg (Negative) Urine Nitrate Negative (Negative) Urine Bilirubin Neg (Negative) Urine Urobilinogen Norm (Negative) mg/dL Ur Leukocyte Saira ase Negative (Negative) Imaging Data^: CXR: Attestation: I personally reviewed and interpreted this imaging study as follows: Radiologist's impression: Negative for acute findings CT Head: Attestation: I personally reviewed and interpreted this imaging study as follows: Radiologist's impression: Negative for acute findings EKG Data^: EKG 1: Attestation: I personally reviewed and interpreted this EKG as follows: EKG interpretation date: 05/25/21 EKG interpretation time: 14:02 Prior EKG tracings: available for review Interpretation: Atrial fibrillation heart rate 70 without specific EKG changes Computer generated interpretation: Chest X-Ray 05/25/21 13:52 IMPRESSION: No acute findings. Head CT 05/25/21 13:52 IMPRESSION: No acute intracranial findings. Radiation Dose CTDIVOL = (mGy): DLP = 911.91 (mGy-cm) EKG 2: Attestation: I personally reviewed and interpreted this EKG as follows: EKG interpretation date: 05/25/21 EKG interpretation time: 15:14 Interpretation: Atrial fibrillation heart rate 70 unchanged from previous EKG Computer generated interpretation: Chest X-Ray 05/25/21 13:52 IMPRESSION: No acute findings. Head CT 05/25/21 13:52 IMPRESSION: No acute intracranial findings. Radiation Dose CTDIVOL = (mGy): DLP = 911.91 (mGy-cm) Discharge Plan Discharge Patient Disposition: Home Clinical Impression: Orthostatic syncope Condition: Stable Prescriptions: New meclizine 12.5 mg tablet 12.5 mg PO TID PRN (Reason: dizziness) Qty: 10 RF: 0 No Action aspirin 81 mg tablet,delayed release (DR/EC) 81 mg PO DAILY RF: 0 furosemide 40 mg tablet 40 mg PO DAILY RF: 0 lisinopril 20 mg tablet 20 mg PO DAILY RF: 0 isosorbide mononitrate 30 mg tablet extended release 24 hr 30 mg PO DAILY RF: 0 potassium chloride 10 mEq tablet extended release 10 meq PO DAILY RF: 0 clopidogrel 75 mg tablet 75 mg PO DAILY RF: 0 rosuvastatin 20 mg tablet 20 mg PO DAILY RF: 0 Discharge Orders: Discharge ED (Routine); Ordered 05/25/21 Ordered By: Arik Caldwell Referrals: Alaina Kumar APN [Primary Care Provider] - Discharge Diet: Advance as tolerated Discharge Activity: Resume usual activity Patient Instructions: Opioid Safety Activity Restrictions/Additional Instructions: ``` I will have case management set the patient for an outpatient Holter monitor. Patient should avoid operating heavy machinery. Take medications as prescribed. Follow-up with PCP in 2 to 3 days. Coding Level of Care Code ED Electronics Warfare Technician for Chg Fwd Exam Comprehensive
[2021-05-25] MEDS: sodium chloride 0.9% 500 ML IV (14:00)
[2021-05-25 14:37] LABS: Basophils % 0.1 %; Eosinophils # 0.1 10^3/uL (0.0-0.8); Hematocrit 38.1 % (42.0-52.0); Hemoglobin 12.1 g/dL (11.7-16.6); Lymphocytes # 1.2 10^3/uL (0.8-4.8); Lymphocytes % 16.8 %; Mean Corpuscular HGB Conc 31.8 g/dL (30.0-36.0); Mean Corpuscular Hemoglobin 31.2 pg (28.0-34.0); Mean Corpuscular Volume 98.2 fl (80-94); Mean Platelet Volume 12.3 fL (7.4-10.4); Monocytes # 0.6 10^3/uL (0.2-0.9); Monocytes % 8.3 %; Neutrophils # 5.03 10^3/uL (1.8-7.7); Neutrophils % 73.5 %; Nucleated Red Blood Cells % 0 %; Platelet Count 113 10^3/cmm (130-400); Red Blood Count 3.88 10^6/uL (4.1-5.3); Red Cell Distribution Width 11.9 % (12.1-15.1); White Blood Count 6.9 10^3/uL (4.0-10.0)
[2021-05-25 14:56] LABS: Troponin(5th) Baseline 24 ng/L (0-15)
[2021-05-25 15:04] LABS: Alanine Aminotransferase 14 U/L (0-41); Albumin Level 3.9 g/dL (3.5-5.2); Alkaline Phosphatase 55 IU/L (40-130); Aspartate Amino Transferase 16 U/L (0-40); Blood Urea Nitrogen 15 mg/dL (8-23); Calcium 9.6 mg/dL (8.5-10.5); Carbon Dioxide 22 mmol/L (22-29); Chloride 102 mmol/L (98-107); Globulin 2.6 g/dL (1.3-4.6); Glucose 121 mg/dL (65-115); NT Pro B Type Natriuretic Pept 199 pg/mL (0-450); Osmolality Calculated 284 mOsm/kg (285-295); Sodium 136 mmol/L (136-145); Total Bilirubin 0.4 mg/dL (0.15-1.2); Total Protein 6.5 g/dL (6.6-8.7)
[2021-05-25 15:07] LABS: Anion Gap 16.9 (5-19); Potassium 4.9 mmol/L (3.5-5.1)
[2021-05-25 15:13] LABS: Add Urine Microscopic? NO; Charge for UA Resulting for Rev
[2021-05-25 15:28] LABS: Bilirubin Urine Neg (Negative); Blood Urine Neg (Negative); Glucose Urine UA Norm (Normal); Ketones Urine Negative (Negative); Leukocyte Esterase Urine Negative (Negative); Nitrate Urine Negative (Negative); Protein Urine Neg (Negative); Urine Appearance Clear (CLEAR); Urine Color Yellow (Yellow); Urobilinogen Urine Norm (Negative); pH Urine 5 (5-7)
[2021-05-25 16:48] LABS: Troponin 5 2HR 25.42 ng/L (0-15); Troponin 5 2HR Delta 1.42 ABS# (0-10)
--- NOTE | 2021-05-26 12:08 | DCPLANNER ---
brokerage office manager had message to schedule an outpatient echo cardiogram and a 72 hour halter monitor for patient. brokerage office manager faxed signed order for echo cardiogram to centralized scheduling, who will call patient with appointment information. brokerage office manager faxed signed order for halter monitor to heart care, who will call patient with appointment information.
--- NOTE | 2021-05-27 15:34 | DCPLANNER ---
Addendum entered by Natalya Carver 09/26/21 14:08: Patient had an echo scheduled - patient did attend appointment Patient had a follow up appointment scheduled with heart care - patient did attend appointment. Original Note: Patient has an outpatient echocardogram scheduled for Friday, June 11, 2021 at 12:45. Patient had a halter monitor scheduled for 05.27.21 - patient did attend appointment.
== END 2021-05-25 17:18 | disposition home or self-care (01) ==
PROVIDERS: Emergency Provider Emergency Medicine; PCP Nurse Practitioner Family
DX: I95.1 Orthostatic hypotension (principal); Z79.82 Long term (current) use of aspirin; Z79.02 Long term (current) use of antithrombotics/antiplatelets; I25.10 Atherosclerotic heart disease of native coronary artery without angina pectoris; E78.5 Hyperlipidemia, unspecified; I10 Essential (primary) hypertension; Z87.891 Personal history of nicotine dependence
CPT/HCPCS: 70450; 71045; 80053; 81003; 83880; 84484; 85025; 85610; 85730; 93005; 96360; 99284; J7040

== ENCOUNTER 2021-06-11 08:01 | Outpatient (CLI) | payer MEDICARE, MEDICAID, SELFPAY ==
--- NOTE | 2021-06-11 09:05 | ECG_ITS ---
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 Interpretive Statements NAME OF STUDY: LEXISCAN SESTAMIBI STRESS TEST INDICATION: Chest Pain, Syncope PROCEDURE: At the baseline, the blood pressure was 126/71 mmHg with a heart rate of 76 bpm. The electrocardiogram showed sinus rhythm with PACs. First-degree AV block. Nonspecific ST depression. T wave inversion in lateral leads. The Lexiscan was infused over a period of 20 seconds. A total of 0.4 milligrams of Lexiscan was infused. The stress phase was continued for a total of 5 minutes. Heart rate at the end of the stress phase was 90 bpm with a blood pressure of 122/70 mmHg. The EKG at the peak infusion revealed junctional rhythm at 60 bpm with no significant ST-T wave changes. Patient developed intraprocedural shortness of breath. He developed nausea and dizziness. Heart rate decreased to 47 on monitor. He received aminophylline and symptoms resolved by discharge. The study was terminated protocol completion. Sestamibi was injected 20 seconds after the Lexiscan infusion. Blood pressure at the end of the recovery phase was 141/74 mmHg with a heart rate of 70 beats per minute. Frequent PACs noted in recovery. CONCLUSION: 1. No significant EKG changes with the LexiScan infusion. 2. No LexiScan induced chest pain. Junctional rhythm noted at peak exercise while patient was nauseated and dizzy. 3. Normal blood pressure and heart rate response. 4. Sestamibi/sestamibi perfusion scan pending; see separate report. Electronically Signed On 06-13-2021 15:02:09 CDT by Sierra Han M.D. [id number]
--- NOTE | 2021-06-11 09:07 | NMCV_ITS ---
NM tomas perf SPECT r/s* [id number] Elías Bingham Age: 75 Gender: M : 1945 Exam Date: 06/11/2021 10:11 Ordering Phys: Jovanny Dunn MD Technologist: GEOVANNA Nelson Exam Location: [facility] Indications: NEAR SYNCOPE STRESS TEST Please see separate stress test report in Ephiphany for full findings IMAGE PROTOCOL Rest/Stress 1 Lexiscan Day Radiopharmaceutical Dose (mCi) Administration Site Administered by Rest: Tc-99m 10.5 IV GEOVANNA Nelson Sestamibi Stress:Tc-99m 32.4 IV GEOVANNA Sood Sestamibi Rest: 11-Jun-2021 60 Discovery 630 Stress: 11-Jun-2021 30 Discovery 630 0.4mg Lexiscan. Images obtained in supine and prone position. SPECT RESULTS Technical Quality: Excellent Raw Data Analysis: Normal Image Corrections: No attenuation or motion correction applied Summed Stress Score: 5 Summed Rest Score: 7 Summed Difference Score: 1 PERFUSION FINDINGS Medium sized perfusion abnormality of mild severity of basal to mid inferior and basal to mid inferolateral love on rest with somewhat improved tracer uptake in basal inferior wall on stress images. FUNCTIONAL RESULTS (calculated via Gated SPECT) Stress Image LV EF (%): 65 Stress EDV (mL):71 TID: 1 Stress ESV (mL):25 FUNCTIONAL FINDINGS: The left ventricle is normal in size. Transient Ischemia Dilatation of 1. There is normal left ventricular systolic function. The left ventricular ejection fraction is normal with a value of 65%. There is normal left ventricular wall thickening with no regional wall motion abnormality. Normal end-diastolic and end-systolic volumes. IMPRESSIONS 1. Medium sized perfusion abnormality of mild severity of basal to mid inferior and basal to mid inferolateral love. 2. 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 3. Overall left ventricular systolic function is normal without regional wall motion abnormalities. 4. The left ventricular ejection fraction is normal with a value of 65%. 5. No coronary ischemia based on the study. 6. EKG portion of the study will be reported separately. Sierra Han MD (Electronically Signed) Final Date: 13 June 2021 15:07 S
[2021-06-11 09:08] VITALS: BMI 34.4
[2021-06-11] MEDS: regadenoson 0.4 Mg/5 ml Syringe IVP (10:58)
[2021-06-11] MEDS: aminophylline 25 mg/mL SDV 10 mL IVP (11:02)
== END 2021-06-11 08:02 | disposition home or self-care (01) ==
PROVIDERS: PCP Nurse Practitioner Family; Visit Provider Emergency Medicine
DX: R07.9 Chest pain, unspecified (principal); R55 Syncope and collapse
CPT/HCPCS: 78452; A9500; J0280; J2785

== ENCOUNTER 2021-07-15 09:26 | Emergency (ER) | payer MEDICARE, MEDICAID, SELFPAY ==
[2021-07-15 09:37] VITALS: TEMP 36.6; BMI 34.2
--- NOTE | 2021-07-15 09:38 | XRR_ITS ---
PROCEDURE INFORMATION: Exam: XR Chest Exam date and time: 07/15/2021 9:38 AM Age: 75 years old Clinical indication: Other: Dizziness and light headed; Patient HX: Became dizzy and light headed while bending over this morning; Additional info: Chest pain TECHNIQUE: Imaging protocol: XR of the chest. Views: 1 view. COMPARISON: CR XR chest 1V portable [id number] 05/25/2021 2:03 PM FINDINGS: Lungs: Low lung volumes. Streaky bibasilar atelectasis noted. No consolidation. Pleural spaces: Unremarkable. No pleural effusion. No pneumothorax. Heart/Mediastinum: Stable cardiomediastinal silhouette. Bones/joints: Unremarkable. XR/XR chest 1V portable [id number] IMPRESSION: No evidence of active cardiopulmonary disease. Radiation Dose CTDIVOL = (mGy): DLP = (mGy-cm)
--- NOTE | 2021-07-15 09:38 | ECG_ITS ---
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 Measurements Intervals [place] Rate: 62 P: 74 NV: 223 QRS: 54 QRSD: 101 T: 91 QT: 411 QTc: 418 Interpretive Statements SINUS RHYTHM WITH FIRST DEGREE AV BLOCK WITH OCCASIONAL SUPRAVENTRICULAR PREMATURE COMPLEXES NONSPECIFIC T-WAVE ABNORMALITY Compared to ECG 07/15/2021 09:49:23 First degree AV block now present T-wave abnormality still present Electronically Signed On 07-16-2021 7:31:19 NAVIGATING OFFICER by Sierra Han M.D. [id number]
[2021-07-15 09:58] VITALS: BP 164/86; PULSE 60; RESP 17; TEMP 36.6; O2SAT 98
[2021-07-15 10:00] LABS: Basophils % 0.4 %; Eosinophils # 0.1 10^3/uL (0.0-0.8); Eosinophils % 1.8 %; Hematocrit 38.2 % (42.0-52.0); Hemoglobin 12.7 g/dL (11.7-16.6); Lymphocytes # 1.1 10^3/uL (0.8-4.8); Lymphocytes % 24.3 %; Mean Corpuscular HGB Conc 33.2 g/dL (30.0-36.0); Mean Corpuscular Hemoglobin 31.6 pg (28.0-34.0); Monocytes # 0.4 10^3/uL (0.2-0.9); Neutrophils # 2.94 10^3/uL (1.8-7.7); Neutrophils % 64.3 %; Nucleated Red Blood Cells % 0 %; Platelet Count 101 10^3/cmm (130-400); Red Blood Count 4.02 10^6/uL (4.1-5.3); White Blood Count 4.6 10^3/uL (4.0-10.0)
--- NOTE | 2021-07-15 10:02 | ED_ITS ---
Documented by User: KENDRICK Rea 07/15/21 16:49 HPI - Chest Pain General: Chief Complaint: Chest Pain Stated Complaint: CHEST PAIN/ NAUSEA/ DIZZINESS Time Seen by Provider: 07/15/21 09:37 Source: patient and family (son) Mode of arrival: ambulatory Limitations: no limitations History of Present Illness: HPI narrative: Patient is a 75-year-old male who presents to ED today along with his son for complaints of dizziness, nausea, and chest pain. Patient tells me he has had multiple similar episodes over the past several months. He states he woke up this morning and felt dizzy. He states he later then bent over and tied his shoes and began having chest pain and nausea. He states upon arrival to the ED symptoms of completely resolved and he feels at baseline. Patient has recently underwent cardiac evaluation with stress test/echocardiogram performed approximately a month ago: CONCLUSION: 1. No significant EKG changes with the LexiScan infusion. 2. No LexiScan induced chest pain. Junctional rhythm noted at peak exercise while patient was nauseated and dizzy. 3. Normal blood pressure and heart rate response. 4. Sestamibi/sestamibi perfusion scan pending; see separate report. IMPRESSIONS 1. Medium sized perfusion abnormality of mild severity of basal to mid inferior and basal to mid inferolateral love. 2. 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 3. Overall left ventricular systolic function is normal without regional wall motion abnormalities. 4. The left ventricular ejection fraction is normal with a value of 65%. 5. No coronary ischemia based on the study. 6. EKG portion of the study will be reported separately. MD complaint: chest pain and other (nausea, dizziness) Pertinent past history: coronary artery disease Onset (ago): hour(s) Timing of current episode: episodic and now resolved Prior episodes: Yes Onset: other (while bending over) Pain location: left chest Pain radiation: none Associated symptoms: Reports nausea (resolved now); Deny dyspnea, fever(s), palpitations, syncope or vomiting Treatment prior to arrival: none Review of Systems Const: Denies: fever(s), chills, body aches, fatigue or malaise Eyes: Denies: change in vision or blurry vision Card: Denies: chest pain (resolved now), palpitations, irregular heart rhythm, edema, swelling of feet/ankles, lightheadedness, syncope, pre-syncope, dyspnea on exertion, orthopnea, leg pain with exertion or acrocyanosis Resp: Denies: dyspnea GI: Reports: nausea (resolved now); Denies: vomiting or diarrhea Musc: Denies: neck pain, back pain, extremity pain or joint pain Skin/Breast: Denies: rash Neuro: Reports: dizziness (resolved now); Denies: headache(s) PFSH ED PFSH: Medical History CKD (chronic kidney disease) Coronary artery disease Hyperlipidemia Hypertension Thrombocytopenia Surgical History History of bilateral knee arthroplasty S/P coronary artery stent placement Family History Other Hyperlipidemia Hypertension Social History Smoking and tobacco status: former smoker Alcohol intake: current Alcohol intake frequency: other Physical Exam Const: COMMON NORMALS: no acute distress, patient oriented x3, no limitations and alert GENERAL APPEARANCE: cooperative NUTRITIONAL APPEARANCE: overweight ORIENTATION/CONSCIOUSNESS: Yes awake, Yes oriented to person, Yes oriented to place and Yes oriented to time HENMT: COMMON NORMALS: normocephalic and atraumatic HEAD & SCALP: normocephalic and atraumatic Resp: COMMON NORMALS: normal respiratory effort and clear to auscultation bilaterally AUSCULTATION: clear to auscultation bilaterally Cardio: COMMON NORMALS: regular rate and regular rhythm RATE: regular rate RHYTHM: regular rhythm GI: COMMON NORMALS: Normal to inspection, nondistended, normoactive bowel sounds present, Soft to palpation, non-tender, No hepatosplenomegaly present and no masses PALPATION: Yes Soft to palpation and Yes No hepatosplenomegaly present Extremity: COMMON NORMALS: no clubbing, cyanosis or edema, no calf tenderness and no pedal edema Neuro: RADHA COMA SCALE: document GCS findings [place] coma scale eye opening: Spontaneous [place] coma scale verbal response: Orientated [place] coma scale motor response: Obey commands Radha coma scale total score: 15 COMMON NORMALS: patient oriented x3, CN's II-XII intact bilaterally, moves all extremities, no focal motor deficits, no sensory deficits noted and gait normal SENSORIUM/ORIENTATION: Yes alert, Yes oriented to person, Yes oriented to place and Yes oriented to time Skin: COMMON NORMALS: no rashes or lesions noted GENERAL SKIN EXAM: no rashes or lesions noted Course Vital Signs: Vital signs: Vital Signs Temperature 97.8 F 07/15/21 09:58 Pulse Rate 67 07/15/21 13:29 Respiratory Rate 17 07/15/21 13:29 Blood Pressure 136/75 07/15/21 13:29 Pulse Oximetry 93 07/15/21 13:29 MDM - Chest Pain MDM Narrative: Medical decision making narrative: Patient has been completely asymptomatic during his stay here. Vital signs are stable. Lab work is overall unremarkable. His baseline troponin is 22 which is what it was approximately 2 months ago during his evaluation. He has a negative delta. CXR is normal. EKGs with no acute changes when compared paired to previous EKGs on file. He has had multiple episodes similar to this previously. He underwent stress test/ echocardiogram approximately a month ago. He states he has followed up with cardiology following these tests. At this time I do not see any indication for hospitalization. Recommend follow-up with PCP and/or cardiology. Return to ED precautions given. Lab Data: Labs: Lab Results 07/15/21 07/15/21 07/15/21 09:55 09:55 09:55 WBC 4.6 10^3/uL 10^3/ uL (4.0-10.0) RBC 4.02 10^6/uL L 10 ^6/uL (4.1-5.3) Hgb 12.7 g/dL g/dL (11.7-16.6) Hct 38.2 % L % (42.0-52.0) MCV 95.0 fl H fl (80-94) MCH 31.6 pg pg (28.0-34.0) MCHC 33.2 g/dL g/dL (30.0-36.0) RDW 12.0 % L % (12.1-15.1) Plt Count 101 10^3/cmm L 10 ^3/cmm (130-400) MPV 12.0 fL H fL (7.4-10.4) Neut % (Auto) 64.3 % % Lymph % (Auto) 24.3 % % Sequoyah % (Auto) 9.0 % % Eos % (Auto) 1.8 % % Baso % (Auto) 0.4 % % Neut # (Auto) 2.94 10^3/uL 10^3 /uL (1.8-7.7) Lymph # (Auto) 1.1 10^3/uL 10^3/ uL (0.8-4.8) Sequoyah # (Auto) 0.4 10^3/uL 10^3/ uL (0.2-0.9) Eos # (Auto) 0.1 10^3/uL 10^3/ uL (0.0-0.8) Baso # (Auto) 0.0 10^3/uL 10^3/ uL (0.0-0.1) Nucleated RBC % (a uto) 0 % % Nucleated RBCs # 0.0 /100WBC /100W BC Sodium 137 mmol/L mmol/L (136-145) Potassium 4.5 mmol/L mmol/L (3.5-5.1) Chloride 103 mmol/L mmol/L (98-107) Carbon Dioxide 24 mmol/L mmol/L (22-29) Anion Gap 14.5 (5-19) BUN 14 mg/dL mg/dL (8-23) Creatinine 1.3 mg/dL H mg/dL (0.7-1.2) GFR Calculation Not Reportable Glucose 115 mg/dL mg/dL (65-115) Calculated Osmolal ity 285 mOsm/kg mOsm/ kg (285-295) Calcium 9.3 mg/dL mg/dL (8.5-10.5) Total Bilirubin 0.4 mg/dL mg/dL (0.15-1.2) AST 14 U/L U/L (0-40) ALT 13 U/L U/L (0-41) Alkaline Phosphata se 49 IU/L IU/L (40-130) Troponin T Baselin e 22 ng/L H ng/L (0-15) Troponin T 120 Min [place] [employer] Delta Troponin T Total Protein 6.7 g/dL g/dL (6.6-8.7) Albumin 4.0 g/dL g/dL (3.5-5.2) Globulin 2.7 g/dL g/dL (1.3-4.6) 07/15/21 11:50 WBC RBC Hgb Hct MCV MCH MCHC RDW Plt Count MPV Neut % (Auto) Lymph % (Auto) Sequoyah % (Auto) Eos % (Auto) Baso % (Auto) Neut # (Auto) Lymph # (Auto) [place]ah # (Auto) Eos # (Auto) Baso # (Auto) Nucleated RBC % (a uto) Nucleated RBCs # Sodium Potassium Chloride Carbon Dioxide Anion Gap BUN Creatinine GFR Calculation Glucose Calculated Osmolal ity Calcium Total Bilirubin AST ALT Alkaline Phosphata se Troponin T Baselin e Troponin T 120 Min [place] 21.94 ng/L H ng/L (0-15) Delta Troponin T -0.06 ABS# L ABS# (0-10) Total Protein Albumin Globulin Imaging Data^: CXR: Radiologist's impression: [address] [address] XRay Report Signed Patient: Elías Bingham Unit #: [id number] : 1945 Age/Sex: 75 / M ADM Date: 07/15/21 Loc: ER Room/Bed: Attending Dr: Ordering Provider/Ordering MD: Shaunna Hess Date of Service: 07/15/21 Procedure(s): XR chest 1V portable [id number] Accession Number(s): [id number] Report Number: [id number] WS: [id number] PORTABLE CHEST HISTORY: Dizziness. COMPARISON: Study earlier the same day and 05/25/2021. Linear atelectasis or scar in the lower RIGHT lung. No pneumothorax. Study is significantly lordotic. No pleural effusion or pneumothorax. Cardiac size: Normal. Mediastinum/Aorta: Mild atherosclerosis aorta. AC joint arthritis. XR/XR chest 1V portable [id number] IMPRESSION: 1. Linear subsegmental atelectasis versus scar in the RIGHT lower lung. 2. No pneumonia. 3. Mild atherosclerosis aorta. Dictated By: Barbie Licea DO Signed By: Barbie Licea DO Signed Date/Time: 07/15/21 1028 DD/ 1026 Discharge Plan Discharge Patient Disposition: Home Clinical Impression: Atypical chest pain, Dizziness Condition: Stable Prescriptions: No Action aspirin 81 mg tablet,delayed release (DR/EC) 81 mg PO DAILY RF: 0 lisinopril 20 mg tablet See Rx Instructions .ROUTE .COMPLEX Qty: 90 RF: 3 meclizine 12.5 mg tablet 12.5 mg PO TID PRN (Reason: dizziness) Qty: 10 RF: 0 furosemide 40 mg tablet 40 mg PO DAILY RF: 0 isosorbide mononitrate 30 mg tablet extended release 24 hr 30 mg PO DAILY RF: 0 potassium chloride 10 mEq tablet extended release 10 meq PO DAILY RF: 0 clopidogrel 75 mg tablet 75 mg PO DAILY RF: 0 rosuvastatin 20 mg tablet 20 mg PO DAILY RF: 0 Discharge Orders: Discharge ED (Routine); Ordered 07/15/21 Ordered By: Shaunna Hess Referrals: Alaina Kumar APN [Primary Care Provider] - Activity Restrictions/Additional Instructions: Please follow-up with your primary care provider and yard spotter in the next 1 to 2 weeks for re-evaluation. You may return to the emergency department if chest pain returns or if you have further episodes of shortness of breath, difficulty breathing, lightheadedness, passing out episodes, or severe dizziness. 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 Fwd Exam Comprehensive Documented by User: Rcih Mccormack DO 07/17/21 10:03 HPI - Chest Pain General: Chief Complaint: Chest Pain Stated Complaint: CHEST PAIN/ NAUSEA/ DIZZINESS Time Seen by Provider: 07/15/21 09:37 [facility] ED PFS: Medical History CKD (chronic kidney disease) Coronary artery disease Hyperlipidemia Hypertension Thrombocytopenia Surgical History History of bilateral knee arthroplasty S/P coronary artery stent placement Family History Other Hyperlipidemia Hypertension Social History Smoking and tobacco status: former smoker Alcohol intake: current Alcohol intake frequency: other Course Vital Signs: Vital signs: Vital Signs Temperature 97.8 F 07/15/21 09:58 Pulse Rate 67 07/15/21 13:29 Respiratory Rate 17 07/15/21 13:29 Blood Pressure 136/75 07/15/21 13:29 Pulse Oximetry 93 07/15/21 13:29 MDM - Chest Pain MDM Narrative: Medical decision making narrative: Chart reviewed and patient discussed with midlevel. Agree with assessment and plan. Lab Data: Labs: Lab Results 07/15/21 07/15/21 07/15/21 09:55 09:55 09:55 WBC 4.6 10^3/uL 10^3/ uL (4.0-10.0) RBC 4.02 10^6/uL L 10 ^6/uL (4.1-5.3) Hgb 12.7 g/dL g/dL (11.7-16.6) Hct 38.2 % L % (42.0-52.0) MCV 95.0 fl H fl (80-94) MCH 31.6 pg pg (28.0-34.0) MCHC 33.2 g/dL g/dL (30.0-36.0) RDW 12.0 % L % (12.1-15.1) Plt Count 101 10^3/cmm L 10 ^3/cmm (130-400) MPV 12.0 fL H fL (7.4-10.4) Neut % (Auto) 64.3 % % Lymph % (Auto) 24.3 % % [place] % (Auto) 9.0 % % Eos % (Auto) 1.8 % % Baso % (Auto) 0.4 % % Neut # (Auto) 2.94 10^3/uL 10^3 /uL (1.8-7.7) Lymph # (Auto) 1.1 10^3/uL 10^3/ uL (0.8-4.8) [place] # (Auto) 0.4 10^3/uL 10^3/ uL (0.2-0.9) Eos # (Auto) 0.1 10^3/uL 10^3/ uL (0.0-0.8) Baso # (Auto) 0.0 10^3/uL 10^3/ uL (0.0-0.1) Nucleated RBC % (a uto) 0 % % Nucleated RBCs # 0.0 /100WBC /100W BC Sodium 137 mmol/L mmol/L (136-145) Potassium 4.5 mmol/L mmol/L (3.5-5.1) Chloride 103 mmol/L mmol/L (98-107) Carbon Dioxide 24 mmol/L mmol/L (22-29) Anion Gap 14.5 (5-19) BUN 14 mg/dL mg/dL (8-23) Creatinine 1.3 mg/dL H mg/dL (0.7-1.2) GFR Calculation Not Reportable Glucose 115 mg/dL mg/dL (65-115) Calculated Osmolal ity 285 mOsm/kg mOsm/ kg (285-295) Calcium 9.3 mg/dL mg/dL (8.5-10.5) Total Bilirubin 0.4 mg/dL mg/dL (0.15-1.2) AST 14 U/L U/L (0-40) ALT 13 U/L U/L (0-41) Alkaline Phosphata se 49 IU/L IU/L (40-130) Troponin T Baselin e 22 ng/L H ng/L (0-15) Troponin T 120 Min [place] Delta Troponin T Total Protein 6.7 g/dL g/dL (6.6-8.7) Albumin 4.0 g/dL g/dL (3.5-5.2) Globulin 2.7 g/dL g/dL (1.3-4.6) 07/15/21 11:50 WBC RBC Hgb Hct MCV MCH MCHC RDW Plt Count MPV Neut % (Auto) Lymph % (Auto) [place] % (Auto) Eos % (Auto) Baso % (Auto) Neut # (Auto) Lymph # (Auto) [place] # (Auto) Eos # (Auto) Baso # (Auto) Nucleated RBC % (a uto) Nucleated RBCs # Sodium Potassium Chloride Carbon Dioxide Anion Gap BUN Creatinine GFR Calculation Glucose Calculated Osmolal ity Calcium Total Bilirubin AST ALT Alkaline Phosphata se Troponin T Baselin e Troponin T 120 Min [place] 21.94 ng/L H ng/L (0-15) Delta Troponin T -0.06 ABS# L ABS# (0-10) Total Protein Albumin Globulin Discharge Plan Discharge Patient Disposition: Home Clinical Impression: Atypical chest pain, Dizziness Condition: Stable Prescriptions: No Action aspirin 81 mg tablet,delayed release (DR/EC) 81 mg PO DAILY RF: 0 lisinopril 20 mg tablet See Rx Instructions .ROUTE .COMPLEX Qty: 90 RF: 3 meclizine 12.5 mg tablet 12.5 mg PO TID PRN (Reason: dizziness) Qty: 10 RF: 0 furosemide 40 mg tablet 40 mg PO DAILY RF: 0 isosorbide mononitrate 30 mg tablet extended release 24 hr 30 mg PO DAILY RF: 0 potassium chloride 10 mEq tablet extended release 10 meq PO DAILY RF: 0 clopidogrel 75 mg tablet 75 mg PO DAILY RF: 0 rosuvastatin 20 mg tablet 20 mg PO DAILY RF: 0 Discharge Orders: Discharge ED (Routine); Ordered 07/15/21 Ordered By: Shaunna Hess Referrals: Alaina Kumar APN [Primary Care Provider] - Activity Restrictions/Additional Instructions: Please follow-up with your primary care provider and yard spotter in the next 1 to 2 weeks for re-evaluation. You may return to the emergency department if chest pain returns or if you have further episodes of shortness of breath, difficulty breathing, lightheadedness, passing out episodes, or severe dizziness. 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 for Caleb Fwd Exam Comprehensive
--- NOTE | 2021-07-15 10:10 | XR_ITS ---
WS: [id number] PORTABLE CHEST HISTORY: Dizziness. COMPARISON: Study earlier the same day and 05/25/2021. Linear atelectasis or scar in the lower RIGHT lung. No pneumothorax. Study is significantly lordotic. No pleural effusion or pneumothorax. Cardiac size: Normal. Mediastinum/Aorta: Mild atherosclerosis aorta. AC joint arthritis. XR/XR chest 1V portable [id number] IMPRESSION: 1. Linear subsegmental atelectasis versus scar in the RIGHT lower lung. 2. No pneumonia. 3. Mild atherosclerosis aorta.
--- NOTE | 2021-07-15 10:14 | PC.NURSE ---
Pt O2 saturation was 85-88 % room air. Notifed provider and he verbally orderd nasal cannula liters and repeat chest xray.
[2021-07-15 10:18] LABS: Troponin(5th) Baseline 22 ng/L (0-15)
[2021-07-15 10:19] LABS: Alanine Aminotransferase 13 U/L (0-41); Alkaline Phosphatase 49 IU/L (40-130); Anion Gap 14.5 (5-19); Aspartate Amino Transferase 14 U/L (0-40); Blood Urea Nitrogen 14 mg/dL (8-23); Calcium 9.3 mg/dL (8.5-10.5); Carbon Dioxide 24 mmol/L (22-29); Chloride 103 mmol/L (98-107); Globulin 2.7 g/dL (1.3-4.6); Glucose 115 mg/dL (65-115); Osmolality Calculated 285 mOsm/kg (285-295); Potassium 4.5 mmol/L (3.5-5.1); Sodium 137 mmol/L (136-145); Total Bilirubin 0.4 mg/dL (0.15-1.2); Total Protein 6.7 g/dL (6.6-8.7)
--- NOTE | 2021-07-15 11:38 | ECG_ITS ---
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 Measurements Intervals [place] Rate: 60 P: 76 CA: 206 QRS: 59 QRSD: 91 T: 105 QT: 413 QTc: 415 Interpretive Statements SINUS RHYTHM WITH FREQUENT SUPRAVENTRICULAR PREMATURE COMPLEXES NONSPECIFIC T-WAVE ABNORMALITY ABNORMAL RHYTHM ECG Compared to ECG 05/25/2021 15:14:49 T-wave abnormality now present Electronically Signed On 07-16-2021 7:41:17 INSOLE BEVELER by Sierra Han M.D. [id number]
[2021-07-15 11:39] VITALS: BP 145/78; PULSE 61; RESP 16; O2SAT 99
[2021-07-15 12:21] LABS: Troponin 5 2HR 21.94 ng/L (0-15)
[2021-07-15 12:29] LABS: Troponin 5 2HR Delta -0.06 ABS# (0-10)
[2021-07-15 13:29] VITALS: BP 136/75; PULSE 67; RESP 17; O2SAT 93
== END 2021-07-15 13:33 | disposition home or self-care (01) ==
PROVIDERS: Emergency Provider Physician Assistant; PCP Nurse Practitioner Family
DX: R07.89 Other chest pain (principal); R42 Dizziness and giddiness; Z79.82 Long term (current) use of aspirin; Z87.891 Personal history of nicotine dependence; I25.10 Atherosclerotic heart disease of native coronary artery without angina pectoris; I12.9 Hypertensive chronic kidney disease with stage 1 through stage 4 chronic kidney disease, or unspecified chronic kidney disease; N18.9 Chronic kidney disease, unspecified
CPT/HCPCS: 71045; 80053; 84484; 85025; 93005; 99283

== ENCOUNTER → 2022-02-16 09:11 | Outpatient (BNVA) | payer MEDICARE, MEDICAID, SELFPAY | PROVIDERS: PCP Nurse Practitioner Family; Visit Provider Internal Medicine Cardiovascular Disease | DX: I25.10 Atherosclerotic heart disease of native coronary artery without angina pectoris (principal); I12.9 Hypertensive chronic kidney disease with stage 1 through stage 4 chronic kidney disease, or unspecified chronic kidney disease; N18.30 Chronic kidney disease, stage 3 unspecified; Z87.891 Personal history of nicotine dependence; E78.2 Mixed hyperlipidemia; D69.6 Thrombocytopenia, unspecified | CPT/HCPCS: 99214 ==

== ENCOUNTER 2023-02-15 00:42 | Emergency (ER) | payer MEDICARE, MEDICAID, SELFPAY ==
[2023-02-15 00:43] VITALS: BMI 34.0
[2023-02-15 00:45] VITALS: BP 198/88; PULSE 76; RESP 17; TEMP 36.6; O2SAT 98
--- NOTE | 2023-02-15 00:47 | ECG_ITS ---
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 Measurements Intervals [place] Rate: 66 P: 0 NV: 0 QRS: 57 QRSD: 102 T: 89 QT: 408 QTc: 430 Interpretive Statements SINUS RHYTHM WITH FIRST DEGREE AV BLOCK WITH OCCASIONAL SUPRAVENTRICULAR PREMATURE COMPLEXES Compared to ECG 07/15/2021 11:42:00 T-wave abnormality no longer present Electronically Signed On 02-15-2023 21:40:58 CDT by Sierra Han M.D. [id number]
--- NOTE | 2023-02-15 00:49 | W.ED.NAVMDI ---
HPI - Nausea/Vomiting/Diarrhea General: Chief complaint: Nausea/Vomiting/Diarrhea Stated complaint: N/V ABD Pain Time Seen by Provider: 02/15/23 00:43 Source: patient and EMS Mode of arrival: EMS Limitations: no limitations History of Present Illness: 77-year-old male states he had a long history of vertigo he states he typically takes meclizine for but he has been out he states he started having dizziness that started last night at 8 PM. He states it is very severe with any movement he has had nausea vomiting some diffuse abdominal cramping. He states that improved if he lays still but with any movement he gets severely nauseous and the room started spinning. He denies any chest pain denies any headache Associated nausea: Yes Associated symtoms: Reports dizziness and nausea; Denies chest pain or headache(s) Review of Systems Const: Denies: fever(s), chills, body aches or change in appetite Eyes: Denies: blurry vision or eye discomfort ENMT: Denies: throat pain or dental pain Card: Denies: chest pain Resp: Denies: dyspnea GI: Reports: abdominal pain, nausea and vomiting; Denies: diarrhea Musc: Denies: neck pain or back pain Skin/Breast: Denies: rash Neuro: Reports: dizziness; Denies: headache(s) PFSH ED PFSH: Medical History CKD (chronic kidney disease) Coronary artery disease Hyperlipidemia Hypertension Thrombocytopenia Surgical History History of bilateral knee arthroplasty S/P coronary artery stent placement Family History Other Hyperlipidemia Hypertension Social History Smoking and tobacco status: former smoker Alcohol intake: current Alcohol intake frequency: other Substance/Drug Use: never Physical Exam Const: COMMON NORMALS: no acute distress, patient oriented x3 and healthy appearing HENMT: COMMON NORMALS: normocephalic and atraumatic HEAD & SCALP: normocephalic and atraumatic Eye: OTHER: Nystagmus when looking to the right Neck/C-Spine: COMMON NORMALS: full ROM and supple Chest: COMMONS NORMALS: normal inspection of the chest and normal palpation of entire chest wall Resp: COMMON NORMALS: normal respiratory effort, No retractions, No use of accessory muscles and clear to auscultation bilaterally AUSCULTATION: clear to auscultation bilaterally Cardio: COMMON NORMALS: regular rate, regular rhythm and No murmurs present (Cardio) RATE: regular rate RHYTHM: regular rhythm GI: COMMON NORMALS: Normal to inspection, nondistended, normoactive bowel sounds present, Soft to palpation, non-tender and no masses PALPATION: Yes Soft to palpation Extremity: COMMON NORMALS: normal to inspection and full ROM Neuro: COMMON NORMALS: patient oriented x3, moves all extremities and no focal motor deficits CRANIAL NERVES: Yes CN normal except as noted SPEECH: speech normal MOTOR EXAM: 5/5 motor strength present throughout Psych: COMMON NORMALS: mental status grossly normal, Normal thought process present and cooperative THOUGHT PROCESS: Normal thought process present Skin: COMMON NORMALS: no rashes or lesions noted and no wounds GENERAL SKIN EXAM: no rashes or lesions noted Course Vital Signs: Vital signs: Vital Signs Temperature 97.8 F 02/15/23 00:45 Pulse Rate 98 02/15/23 01:20 Respiratory Rate 16 02/15/23 01:20 Blood Pressure 184/91 02/15/23 01:20 Pulse Oximetry 98 02/15/23 01:20 Oxygen Delivery Me thod Room Air 02/15/23 01:20 MDM - Nausea/Vomiting/Diarrhea Medical Decision Making Patient presents here with vertigo has had vertigo chronically did give him meclizine here and his symptoms resolved he is able to ambulate the halls without any difficulty has had no more vertigo or vomiting blood works normal no signs of stroke he is stable for discharge we will prescribe him Zofran along with meclizine he is to return if worsening he understands agrees to plan. Medical Records I reviewed the patient's medical records. Lab Data I reviewed the patient's lab results. 02/15/23 01:00 02/15/23 01:00 Laboratory Results WBC 7.8 10^3/uL (4.0-10.0) 02/15/23 01:00 RBC 3.99 10^6/uL (4.1-5.3) L 02/15/23 01:00 Hgb 12.0 g/dL (11.7-16.6) 02/15/23 01:00 Hct 37.8 % (42.0-52.0) L 02/15/23 01:00 MCV 94.7 fl (80-94) H 02/15/23 01:00 MCH 30.1 pg (28.0-34.0) 02/15/23 01:00 MCHC 31.7 g/dL (30.0-36.0) 02/15/23 01:00 RDW 12.2 % (12.1-15.1) 02/15/23 01:00 Plt Count 116 10^3/cmm (130-400) L 02/15/23 01:00 MPV 12.2 fL (7.4-10.4) H 02/15/23 01:00 Neut % (Auto) 73.2 % 02/15/23 01:00 Lymph % (Auto) 16.6 % 02/15/23 01:00 [place] % (Auto) 8.1 % 02/15/23 01:00 Eos % (Auto) 1.7 % 02/15/23 01:00 Baso % (Auto) 0.3 % 02/15/23 01:00 Neut # (Auto) 5.70 10^3/uL (1.8-7.7) 02/15/23 01:00 Lymph # (Auto) 1.3 10^3/uL (0.8-4.8) 02/15/23 01:00 [place] # (Auto) 0.6 10^3/uL (0.2-0.9) 02/15/23 01:00 Eos # (Auto) 0.1 10^3/uL (0.0-0.8) 02/15/23 01:00 Baso # (Auto) 0.0 10^3/uL (0.0-0.1) 02/15/23 01:00 Nucleated RBC % (auto) 0 % 02/15/23 01:00 Nucleated RBCs # 0.0 /100WBC 02/15/23 01:00 Sodium 136 mmol/L (136-145) 02/15/23 01:00 Potassium 4.3 mmol/L (3.5-5.1) 02/15/23 01:00 Chloride 102 mmol/L (98-107) 02/15/23 01:00 Carbon Dioxide 24 mmol/L (22-29) 02/15/23 01:00 Anion Gap 14.3 (5-19) 02/15/23 01:00 BUN 18 mg/dL (8-23) 02/15/23 01:00 Creatinine 1.3 mg/dL (0.7-1.2) H 02/15/23 01:00 GFR Calculation Not Reportable 02/15/23 01:00 Glucose 147 mg/dL (65-115) H 02/15/23 01:00 Calculated Osmolality 287 mOsm/kg (285-295) 02/15/23 01:00 Calcium 9.8 mg/dL (8.5-10.5) 02/15/23 01:00 Total Bilirubin 0.3 mg/dL (0.15-1.2) 02/15/23 01:00 AST 16 U/L (0-40) 02/15/23 01:00 ALT 14 U/L (0-41) 02/15/23 01:00 Alkaline Phosphatase 65 U/L (40-130) 02/15/23 01:00 Total Protein 7.0 g/dL (6.6-8.7) 02/15/23 01:00 Albumin 3.7 g/dL (3.5-5.2) 02/15/23 01:00 Globulin 3.3 g/dL (1.3-4.6) 02/15/23 01:00 Lipase 37 U/L (13-60) 02/15/23 01:00 EKG Data EKG 1: I personally reviewed and interpreted this EKG as follows: EKG interpretation date: 02/15/23 EKG interpretation time: 00:59 Interpretation: nsr hr [address] or t wave abnormalities qrs 12 qtc 422 Discharge Plan Discharge Patient Disposition: Home Clinical Impression: Vertigo, Vomiting Condition: Stable Prescriptions: New ondansetron 4 mg tablet,disintegrating 4 mg PO Q6H PRN (Reason: nausea and vomiting) Qty: 14 0RF Antivert 50 mg tablet 50 mg PO BID PRN (Reason: dizziness) Qty: 20 0RF No Action aspirin 81 mg tablet,delayed release (DR/EC) 81 mg PO DAILY clopidogrel 75 mg tablet 75 mg PO DAILY Qty: 90 3RF furosemide 40 mg tablet 40 mg PO DAILY Qty: 90 3RF isosorbide mononitrate 30 mg tablet extended release 24 hr 30 mg PO DAILY Qty: 90 3RF nitroglycerin 0.4 mg tablet, sublingual 0.4 mg sublingual Q5M PRN (Reason: chest pain) Qty: 25 3RF Rx Instructions: do not exceed 3 doses per episode potassium chloride 10 mEq tablet extended release 10 meq PO DAILY Qty: 90 3RF rosuvastatin 20 mg tablet 20 mg PO DAILY Qty: 90 3RF lisinopril 20 mg tablet 20 mg PO DAILY Qty: 90 3RF meclizine 12.5 mg tablet 12.5 mg PO TID PRN (Reason: dizziness) Qty: 10 0RF Discharge Orders: Discharge ED (Routine); Ordered 02/15/23 Ordered By: Kacye Villeda Referrals: Kumar,AIDEE FoleyN [Primary Care Provider] - 1-3 days Discharge Diet: Advance as tolerated Discharge Activity: Resume usual activity Patient Instructions: Vertigo (ED), Benign Paroxysmal Positional Vertigo (ED) Coding Level of Care Code ED Clearance Center Manager for Caleb Myles
[2023-02-15] MEDS: sodium chloride 0.9% 500 ML IV (01:02)
[2023-02-15] MEDS: meclizine 25 mg tablet 50 MG PO (01:08)
[2023-02-15 01:10] LABS: Basophils % 0.3 %; Eosinophils # 0.1 10^3/uL (0.0-0.8); Eosinophils % 1.7 %; Hematocrit 37.8 % (42.0-52.0); Lymphocytes # 1.3 10^3/uL (0.8-4.8); Lymphocytes % 16.6 %; Mean Corpuscular HGB Conc 31.7 g/dL (30.0-36.0); Mean Corpuscular Hemoglobin 30.1 pg (28.0-34.0); Mean Corpuscular Volume 94.7 fl (80-94); Mean Platelet Volume 12.2 fL (7.4-10.4); Monocytes # 0.6 10^3/uL (0.2-0.9); Monocytes % 8.1 %; Neutrophils % 73.2 %; Nucleated Red Blood Cells % 0 %; Platelet Count 116 10^3/cmm (130-400); Red Blood Count 3.99 10^6/uL (4.1-5.3); Red Cell Distribution Width 12.2 % (12.1-15.1); White Blood Count 7.8 10^3/uL (4.0-10.0)
[2023-02-15] MEDS: ondansetron 2 mg/ML SDV 2 mL 4 MG IVP (01:10)
[2023-02-15] MEDS: hyDRALAzine 20 mg/mL INJ 1 mL 10 MG IVP (01:12)
[2023-02-15 01:20] VITALS: BP 184/91; PULSE 98; RESP 16; O2SAT 98
[2023-02-15 01:31] LABS: Alanine Aminotransferase 14 U/L (0-41); Albumin Level 3.7 g/dL (3.5-5.2); Alkaline Phosphatase 65 U/L (40-130); Anion Gap 14.3 (5-19); Aspartate Amino Transferase 16 U/L (0-40); Blood Urea Nitrogen 18 mg/dL (8-23); Calcium 9.8 mg/dL (8.5-10.5); Carbon Dioxide 24 mmol/L (22-29); Chloride 102 mmol/L (98-107); Globulin 3.3 g/dL (1.3-4.6); Glucose 147 mg/dL (65-115); Lipase 37 U/L (13-60); Osmolality Calculated 287 mOsm/kg (285-295); Potassium 4.3 mmol/L (3.5-5.1); Sodium 136 mmol/L (136-145); Total Bilirubin 0.3 mg/dL (0.15-1.2)
== END 2023-02-15 01:58 | disposition home or self-care (01) ==
PROVIDERS: Emergency Provider Emergency Medicine; PCP Nurse Practitioner Family
DX: R42 Dizziness and giddiness (principal); R11.10 Vomiting, unspecified; Z79.82 Long term (current) use of aspirin; Z79.02 Long term (current) use of antithrombotics/antiplatelets; I12.9 Hypertensive chronic kidney disease with stage 1 through stage 4 chronic kidney disease, or unspecified chronic kidney disease; N18.9 Chronic kidney disease, unspecified; I25.10 Atherosclerotic heart disease of native coronary artery without angina pectoris; E78.5 Hyperlipidemia, unspecified; Z87.891 Personal history of nicotine dependence
CPT/HCPCS: 80053; 83690; 85025; 93005; 96374; 96375; 99284; J0360; J2405; J7040; J8597

== ENCOUNTER → 2023-02-19 10:26 | Outpatient (BNVA) | payer MEDICARE, MEDICAID, SELFPAY | PROVIDERS: PCP Nurse Practitioner Family; Visit Provider Internal Medicine Cardiovascular Disease | DX: I25.10 Atherosclerotic heart disease of native coronary artery without angina pectoris (principal); I12.9 Hypertensive chronic kidney disease with stage 1 through stage 4 chronic kidney disease, or unspecified chronic kidney disease; N18.30 Chronic kidney disease, stage 3 unspecified; Z87.891 Personal history of nicotine dependence | CPT/HCPCS: 99214 ==

== ENCOUNTER 2024-02-10 05:57 | Emergency (ER) | payer MEDICARE, MEDICAID, SELFPAY ==
[2024-02-10 05:58] VITALS: BP 157/78; PULSE 66; RESP 18; TEMP 36.6; O2SAT 97; BMI 34.0
--- NOTE | 2024-02-10 06:00 | XRR_ITS ---
PROCEDURE INFORMATION: Exam: XR Chest Exam date and time: 02/10/2024 6:05 AM Age: 78 years old Clinical indication: Pain; Chest pressure; Prior surgery; Surgery date: 6+ months; Surgery type: Cardiac stents; Additional info: Chest pain TECHNIQUE: Imaging protocol: Radiologic exam of the chest. Views: 1 view. COMPARISON: CR XR chest 1V portable [id number] 07/15/2021 10:18 AM FINDINGS: Lungs: Interstitial scarring at the right lung base stable from remote comparison. No consolidation. No focal mass identified. Negative for vascular dilation. Pleural spaces: Unremarkable. No pleural effusion. No pneumothorax. Heart/Mediastinum: Unremarkable. No cardiomegaly. Bones/joints: Unremarkable. XR/XR chest 1V portable [id number] IMPRESSION: Negative for acute chest pathology.
--- NOTE | 2024-02-10 06:05 | ECG_ITS ---
[facility] Test Date: 2024-02-10 Pat Name: Elías Bingham Department: Room: Gender: Male Audience Coordinator: : 1945 Requested By: Rich Flores Order Number: [id number] Otilia MD: Brandon Zamora M.D. Measurements Intervals [place] Rate: 62 P: 69 [place]: 222 QRS: 44 QRSD: 102 T: 75 QT: 387 QTc: 395 Interpretive Statements SINUS RHYTHM WITH MARKED SINUS ARRHYTHMIA WITH FIRST DEGREE AV BLOCK Compared to ECG 02/15/2023 00:59:52 No significant changes Electronically Signed On 02-10-2024 12:21:21 CDT by Brandon Zamora M.D. [id number]
[2024-02-10 06:17] LABS: Basophils % 0.4 %; Eosinophils # 0.2 10^3/uL (0.0-0.8); Eosinophils % 3.9 %; Hematocrit 37.6 % (37-53); Lymphocytes # 1.4 10^3/uL (0.8-4.8); Lymphocytes % 29.8 %; Mean Corpuscular HGB Conc 31.6 g/dL (30-55); Mean Corpuscular Hemoglobin 30.9 pg (27-33); Mean Corpuscular Volume 97.7 fl (82-101); Mean Platelet Volume 12.5 fL (7.4-10.4); Monocytes # 0.5 10^3/uL (0.2-0.9); Monocytes % 10.1 %; Neutrophils # 2.69 10^3/uL (1.8-7.7); Neutrophils % 55.6 %; Nucleated Red Blood Cells % 0 %; Platelet Count 116 10^3/cmm (157-399); Red Blood Count 3.85 10^6/uL (3.85-5.65); Red Cell Distribution Width 12.4 % (12.1-15.1); White Blood Count 4.84 10^3/uL (3.29-11.43)
--- NOTE | 2024-02-10 06:27 | W.ED.CHESTPA ---
HPI - Chest Pain General: Chief Complaint: Chest Pain Stated Complaint: CHEST PAIN Time Seen by Provider: 02/10/24 06:00 Source: patient Mode of arrival: EMS History of Present Illness: 78-year-old male who presents to the emergency room via ambulance with his complaint of chest pain that began this morning. He describes it as a sharp pain in the left lower ribs he isolates area to the anterior axillary line at the level of about the ninth and 10th ribs. He has not noticed anything that exacerbates or relieves it. While we are examining him he had a brief episode. He states it last for couple of seconds when he does get it he has not noticed any association with inspiration or cough movement or palpation was not able to reproduce it with palpation no recent trauma to the area patient does have a history of coronary artery disease. He denies any other recent episodes of chest discomfort. Reviewing his chart in 2020 he had a Lexiscan sestamibi stress test that was read as normal. He has previously had coronary stents. EMS and route given 4 mg of Zofran 325 of aspirin and 1 sublingual nitro. Despite the sublingual nitro he is still intermittently having these sharp episodes of chest pain in the described area that lasts just a second or 2. MD complaint: chest pain Onset (ago): hour(s) Timing of current episode: episodic Onset: during rest Pain location: left chest Pain radiation: none Quality: sharp Exacerbating factors: nothing Associated symptoms: Deny abdominal pain, diaphoresis, dyspnea, fever(s), leg edema, nausea, palpitations, sense of impending doom, syncope or vomiting Treatment prior to arrival: none Review of Systems Const: Denies: fever(s), chills or diaphoresis Card: Denies: chest pain, palpitations or syncope Resp: Denies: dyspnea GI: Denies: abdominal pain, nausea or vomiting : Denies: dysuria, urinary frequency or urinary urgency Musc: Denies: neck pain or back pain Skin/Breast: Denies: rash PFSH ED PFSH: Medical History CKD (chronic kidney disease) Thrombocytopenia Hyperlipidemia Hypertension Coronary artery disease Surgical History S/P coronary artery stent placement History of bilateral knee arthroplasty Family History Other Hyperlipidemia Hypertension Social History Smoking and tobacco/nicotine status: former use of tobacco/nicotine Alcohol intake: current Alcohol intake frequency: other Substance/Drug Use: never Physical Exam Const: COMMON NORMALS: no acute distress GENERAL APPEARANCE: cooperative and comfortable ORIENTATION/CONSCIOUSNESS: Yes awake, Yes oriented to person, Yes oriented to place and Yes oriented to time HENMT: COMMON NORMALS: normocephalic, atraumatic and hearing grossly normal bilaterally HEAD & SCALP: normocephalic and atraumatic Resp: COMMON NORMALS: normal respiratory effort, No retractions, No use of accessory muscles and clear to auscultation bilaterally AUSCULTATION: clear to auscultation bilaterally Cardio: COMMON NORMALS: regular rate, regular rhythm and No murmurs present (Cardio) RATE: regular rate RHYTHM: regular rhythm GI: COMMON NORMALS: Soft to palpation and No hepatosplenomegaly present AUSCULTATION: Yes normoactive bowel sounds PALPATION: Yes Soft to palpation, No Tenderness to palpation present (GI), No Guarding due to palpation present (GI) and Yes No hepatosplenomegaly present Extremity: COMMON NORMALS: normal to inspection, capillary refill normal, no clubbing, cyanosis or edema, no calf tenderness and no pedal edema Neuro: SENSORIUM/ORIENTATION: Yes oriented to person, Yes oriented to place and Yes oriented to time Skin: COMMON NORMALS: no rashes or lesions noted GENERAL SKIN EXAM: no rashes or lesions noted Course Vital Signs: Vital signs: Vital Signs Temperature 97.9 F 02/10/24 05:58 Pulse Rate 78 02/10/24 08:30 Respiratory Rate 18 02/10/24 05:58 Blood Pressure 154/78 02/10/24 08:30 Pulse Oximetry 93 02/10/24 08:30 Oxygen Delivery Me thod Room Air 02/10/24 05:58 MDM - Chest Pain Medical Decision Making Atypical chest comfort has not had any further symptoms. His symptoms did not sound cardiac in nature his cardiac enzymes showed no significant delta his EKG shows first-degree AV block but no ST changes. He states his symptoms have completely resolved he is not having further chest pain. He feels it is related to his stomach and GI tract. He states he has had this before in the past this was just a little more intense. He had a normal cardiac stress test in June 2021. Will discharge the patient home have him follow-up with cardiology. He states he has a follow-up appoint with cardiology within the next week. Return if he has further symptoms. Medical Records I reviewed the patient's medical records. Lab Data I reviewed the patient's lab results. 02/10/24 06:12 02/10/24 06:12 Radiology Impressions Chest X-Ray 02/10/24 06:00 IMPRESSION: Negative for acute chest pathology. Laboratory Results WBC 4.84 10^3/uL (3.29-11.43) 02/10/24 06:12 RBC 3.85 10^6/uL (3.85-5.65) 02/10/24 06:12 Hgb 11.90 g/dL (11.27-16.99) 02/10/24 06:12 Hct 37.6 % (37-53) 02/10/24 06:12 MCV 97.7 fl (82-101) 02/10/24 06:12 MCH 30.9 pg (27-33) 02/10/24 06:12 MCHC 31.6 g/dL (30-55) 02/10/24 06:12 RDW 12.4 % (12.1-15.1) 02/10/24 06:12 Plt Count 116 10^3/cmm (157-399) L 02/10/24 06:12 MPV 12.5 fL (7.4-10.4) H 02/10/24 06:12 Neut % (Auto) 55.6 % 02/10/24 06:12 Lymph % (Auto) 29.8 % 02/10/24 06:12 [place] % (Auto) 10.1 % 02/10/24 06:12 Eos % (Auto) 3.9 % 02/10/24 06:12 Baso % (Auto) 0.4 % 02/10/24 06:12 Neut # (Auto) 2.69 10^3/uL (1.8-7.7) 02/10/24 06:12 Lymph # (Auto) 1.4 10^3/uL (0.8-4.8) 02/10/24 06:12 [place] # (Auto) 0.5 10^3/uL (0.2-0.9) 02/10/24 06:12 Eos # (Auto) 0.2 10^3/uL (0.0-0.8) 02/10/24 06:12 Baso # (Auto) 0.0 10^3/uL (0.0-0.1) 02/10/24 06:12 Nucleated RBC % (auto) 0 % 02/10/24 06:12 Nucleated RBCs # 0.0 /100WBC 02/10/24 06:12 Sodium 139 mmol/L (136-145) 02/10/24 06:12 Potassium 4.4 mmol/L (3.5-5.1) 02/10/24 06:12 Chloride 104 mmol/L (98-107) 02/10/24 06:12 Carbon Dioxide 27 mmol/L (22-29) 02/10/24 06:12 Anion Gap 12.4 (5-19) 02/10/24 06:12 BUN 15 mg/dL (8-23) 02/10/24 06:12 Creatinine 1.4 mg/dL (0.7-1.2) H 02/10/24 06:12 GFR Calculation Not Reportable 02/10/24 06:12 Glucose 129 mg/dL (65-115) H 02/10/24 06:12 Calculated Osmolality 291 mOsm/kg (285-295) 02/10/24 06:12 Calcium 9.9 mg/dL (8.5-10.5) 02/10/24 06:12 Total Bilirubin 0.2 mg/dL (0.15-1.2) 02/10/24 06:12 AST 13 U/L (0-40) 02/10/24 06:12 ALT 12 U/L (0-41) 02/10/24 06:12 Alkaline Phosphatase 64 U/L (40-130) 02/10/24 06:12 Troponin T Baseline 24 ng/L (0-15) H 02/10/24 06:12 Troponin T 120 Minute 24.91 ng/L (0-15) H 02/10/24 08:26 Delta Troponin T 0.91 ABS# (0-10) 02/10/24 08:26 Total Protein 6.8 g/dL (6.6-8.7) 02/10/24 06:12 Albumin 3.9 g/dL (3.5-5.2) 02/10/24 06:12 Globulin 2.9 g/dL (1.3-4.6) 02/10/24 06:12 All radiology interpretation(s) finalized by discharge EKG Data EKG 1: EKG interpretation date: 02/10/24 EKG interpretation time: 06:05 Interpretation: Normal sinus rhythm first-degree AV block with a MO interval of 222. No acute ST changes. Rate of 62 EKG 2: EKG interpretation date: 02/10/24 EKG interpretation time: 08:23 Interpretation: Sinus bradycardia with no acute ST changes. First-degree heart block with MO interval of 214 Discharge Plan Discharge Patient Disposition: Home Clinical Impression: Atypical chest pain Condition: Stable Prescriptions: No Action aspirin 81 mg tablet,delayed release (DR/EC) 81 mg PO QAM nitroglycerin 0.4 mg tablet, sublingual 0.4 mg sublingual Q5M PRN (Reason: chest pain) Qty: 25 3RF Rx Instructions: do not exceed 3 doses per episode Dramamine 50 mg Tablet 50 mg PO Q8H PRN (Reason: Dizziness) furosemide 40 mg tablet 40 mg PO QAM lisinopril 20 mg tablet 20 mg PO QAM isosorbide mononitrate 30 mg tablet extended release 24 hr 30 mg PO QAM potassium chloride 10 mEq tablet extended release 10 meq PO QAM clopidogrel 75 mg tablet 75 mg PO QAM rosuvastatin 20 mg tablet 20 mg PO QAM Discharge Orders: Discharge ED (Routine); Ordered 02/10/24 Ordered By: Rich Mccormack Referrals: Alaina Kumar APN [Primary Care Provider] - Discharge Diet: As Directed Discharge Activity: Increase activity as tolerated Patient Instructions: Diet for Stomach Ulcers and Gastritis (ED), Opioid Safety, Pain Management Activity Restrictions/Additional Instructions: Thank you for choosing [facility] for your healthcare needs today. It is very important that you follow up as instructed or that you return to the Emergency Department should you have concerns or if your condition changes or worsens in any way. You were seen today for abdominal and chest discomfort. Your laboratory test did not show any acute abnormalities your cardiac enzymes remained stable your EKG did not show any acute changes. You had stated you had a follow-up appointment with your mechanical maintenance engineer within the next week recommend he keep that appointment. We did review your chart in June 2021 you had a normal stress test. Follow-up with your mechanical maintenance engineer to review if he feels another stress test is indicated. If you have further chest discomfort or changes symptoms return to the emergency room. Coding Level of Care Code ED Doughnut Fryer for Caleb Myles
[2024-02-10 06:37] LABS: Troponin(5th) Baseline 24 ng/L (0-15)
[2024-02-10 06:40] LABS: Alanine Aminotransferase 12 U/L (0-41); Albumin Level 3.9 g/dL (3.5-5.2); Alkaline Phosphatase 64 U/L (40-130); Aspartate Amino Transferase 13 U/L (0-40); Blood Urea Nitrogen 15 mg/dL (8-23); Calcium 9.9 mg/dL (8.5-10.5); Carbon Dioxide 27 mmol/L (22-29); Chloride 104 mmol/L (98-107); Creatinine Clr Calc Pharmacy 50.9243; Globulin 2.9 g/dL (1.3-4.6); Glucose 129 mg/dL (65-115); Osmolality Calculated 291 mOsm/kg (285-295); Sodium 139 mmol/L (136-145); Total Bilirubin 0.2 mg/dL (0.15-1.2); Total Protein 6.8 g/dL (6.6-8.7)
[2024-02-10 06:49] LABS: Anion Gap 12.4 (5-19); Potassium 4.4 mmol/L (3.5-5.1)
[2024-02-10 08:00] VITALS: BP 155/78; PULSE 63; O2SAT 97
--- NOTE | 2024-02-10 08:09 | ECG_ITS ---
[facility] Test Date: 2024-02-10 Pat Name: Elías Bingham Department: Room: Gender: Male Mammography Tech: : 1945 Requested By: Rich Flores Order Number: [id number] Otilia MD: Brandon Zamora M.D. Measurements Intervals [place] Rate: 59 P: 75 [place]: 214 QRS: 54 QRSD: 102 T: 79 QT: 410 QTc: 406 Interpretive Statements SINUS BRADYCARDIA WITH MARKED SINUS ARRHYTHMIA WITH FIRST DEGREE AV BLOCK Compared to ECG 02/10/2024 06:05:24 Sinus rhythm no longer present Electronically Signed On 02-10-2024 12:24:05 CDT by Brandon Zamora M.D. [id number]
[2024-02-10 08:30] VITALS: BP 154/78; PULSE 78; O2SAT 93
[2024-02-10 08:49] LABS: Troponin 5 2HR 24.91 ng/L (0-15); Troponin 5 2HR Delta 0.91 ABS# (0-10)
[2024-02-10 10:16] VITALS: BP 158/89; PULSE 75; RESP 17; O2SAT 97
== END 2024-02-10 10:17 | disposition home or self-care (01) ==
PROVIDERS: Emergency Provider Family Medicine; PCP Nurse Practitioner Family
DX: R07.89 Other chest pain (principal); R00.1 Bradycardia, unspecified; I44.0 Atrioventricular block, first degree; Z79.02 Long term (current) use of antithrombotics/antiplatelets; Z79.82 Long term (current) use of aspirin; Z87.891 Personal history of nicotine dependence; I12.9 Hypertensive chronic kidney disease with stage 1 through stage 4 chronic kidney disease, or unspecified chronic kidney disease; N18.9 Chronic kidney disease, unspecified; E78.5 Hyperlipidemia, unspecified; I25.10 Atherosclerotic heart disease of native coronary artery without angina pectoris
CPT/HCPCS: 36415; 71045; 80053; 84484; 85025; 93005; 99285

== ENCOUNTER → 2024-02-17 14:00 | Outpatient (BNVA) | payer MEDICARE, MEDICAID, SELFPAY | PROVIDERS: PCP Nurse Practitioner Family; Visit Provider Internal Medicine Cardiovascular Disease | DX: I25.10 Atherosclerotic heart disease of native coronary artery without angina pectoris (principal); E78.2 Mixed hyperlipidemia; D69.6 Thrombocytopenia, unspecified; I12.9 Hypertensive chronic kidney disease with stage 1 through stage 4 chronic kidney disease, or unspecified chronic kidney disease; N18.30 Chronic kidney disease, stage 3 unspecified; Z87.891 Personal history of nicotine dependence | CPT/HCPCS: 99214 ==

== ENCOUNTER → 2024-08-17 09:03 | Outpatient (BNVA) | payer MEDICARE, MEDICAID, SELFPAY | PROVIDERS: PCP Nurse Practitioner Family; Visit Provider Nurse Practitioner Family | DX: I25.119 Atherosclerotic heart disease of native coronary artery with unspecified angina pectoris (principal); E78.5 Hyperlipidemia, unspecified; Z87.891 Personal history of nicotine dependence; I12.9 Hypertensive chronic kidney disease with stage 1 through stage 4 chronic kidney disease, or unspecified chronic kidney disease; N18.9 Chronic kidney disease, unspecified | CPT/HCPCS: 99214 ==

== ENCOUNTER → 2025-02-12 10:32 | Outpatient (BNVA) | payer MEDICARE, MEDICAID, SELFPAY | PROVIDERS: PCP Nurse Practitioner Family; Visit Provider Nurse Practitioner | DX: I10 Essential (primary) hypertension (principal); E78.2 Mixed hyperlipidemia; R73.9 Hyperglycemia, unspecified; M25.50 Pain in unspecified joint; E55.9 Vitamin D deficiency, unspecified; M10.9 Gout, unspecified | CPT/HCPCS: 73110; 80053; 80061; 82306; 82607; 83036; 84443; 84550; 85025; 85651; 86140; 86431 ==

== ENCOUNTER → 2025-02-23 09:08 | Outpatient (BNVA) | payer MEDICARE, MEDICAID, SELFPAY | PROVIDERS: PCP Nurse Practitioner; Visit Provider Nurse Practitioner | DX: Z12.11 Encounter for screening for malignant neoplasm of colon (principal) | CPT/HCPCS: 82270 ==

== ENCOUNTER → 2025-05-08 08:03 | Outpatient (BNVA) | payer MEDICARE, MEDICAID, SELFPAY | PROVIDERS: PCP Nurse Practitioner; Visit Provider Nurse Practitioner | DX: I10 Essential (primary) hypertension (principal); E78.2 Mixed hyperlipidemia | CPT/HCPCS: 80053; 80061; 83036; 84443; 85025 ==

== ENCOUNTER → 2025-08-07 09:27 | Outpatient (BNVA) | payer MEDICARE, MEDICAID, SELFPAY | PROVIDERS: PCP Nurse Practitioner; Visit Provider Clinical Nurse Specialist Adult Health | DX: E53.8 Deficiency of other specified B group vitamins (principal); D64.9 Anemia, unspecified; E61.1 Iron deficiency; E78.2 Mixed hyperlipidemia | CPT/HCPCS: 80053; 80061; 82607; 82728; 83550 ==

== ENCOUNTER 2025-08-22 11:47 | Outpatient (CLI) | payer MEDICARE, MEDICAID, SELFPAY ==
--- NOTE | 2025-08-22 12:00 | CT_ITS ---
WS: [id number] CT HEAD NONCONTRAST HISTORY: R55 - Syncope and collapse TECHNIQUE: Contiguous axial imaging performed through the brain. Bone and soft tissue windows. Sagittal and coronal reformats reviewed. All CT scans at [facility] use at least one of these dose optimization techniques: automated exposure control; mA and/or kV adjustment per patient size (includes targeted exams where dose is matched to clinical indication); or iterative reconstruction. DLP: 1129.95 mGy.cm COMPARISON: CT 05/25/2021 Symmetric moderate cerebral atrophy. Greatest atrophy involving the frontal temporal lobes. Mild cerebellar atrophy. Mild white matter changes from small vessel disease. No infarct. No acute hemorrhage. Ventricles: Normal size with no hydrocephalus. No inferior displacement of cerebellar tonsils. Clivus and pituitary negative by CT. Paranasal sinuses: As visualized are clear. Mastoid air cells: Fluid in the mastoid air cells bilaterally but greater on the LEFT. Similar to the prior study of 05/25/2021. Calvarium and scalp: Skull is intact with no soft tissue edema or swelling. Densely calcified intracranial vertebral and carotid artery atherosclerosis. CT/CT head wo con* [id number] IMPRESSION: 1. No acute intracranial hemorrhage or edema. 2. Moderate cerebral atrophy. 3. Mild small vessel disease. No large infarct. 4. No ventriculomegaly.
== END 2025-08-22 11:48 | disposition home or self-care (01) ==
PROVIDERS: PCP Nurse Practitioner; Visit Provider Nurse Practitioner
DX: G93.89 Other specified disorders of brain (principal); I67.89 Other cerebrovascular disease; J34.89 Other specified disorders of nose and nasal sinuses
CPT/HCPCS: 70450